=== PATIENT | male | born 1970 | race Caucasian/White ===

== ENCOUNTER 2018-01-04 09:49 | Emergency (ER) | payer BC, SELFPAY ==
[2018-01-04 09:50] VITALS: BP 141/94; PULSE 88; RESP 16; TEMP 36.6; O2SAT 97; BMI 29.0
--- NOTE | 2018-01-04 10:01 | EKG12_ITS ---
Test Reason : CP Blood Pressure : / mmHG Vent. Rate : 086 BPM Atrial Rate : 086 BPM P-R Int : 154 ms QRS Dur : 098 ms QT Int : 366 ms P-R-T Axes : 020 029 022 degrees QTc Int : 437 ms Normal sinus rhythm Normal ECG Confirmed by CASTILLO HAIDER, YECENIA ([id number]), online content editor JULIET GUPTA ([id number]) on 01/06/2018 2:07:49 PM Referred By: RONIT/JAMAL Confirmed By:YECENIA CHONG MD
--- NOTE | 2018-01-04 10:04 | ED.VISSUMM ---
- ER Visit Summary Date of Service: 01/04/18 Chief Complaint: Chest pain History of Present Illness: The patient is a 47 M who presents with chest pain. Started 3 hours ago. He was walking into work and had stabbing pain in the left side of the chest. It made his left arm go numb. Nothing made this pain better or worse. He states he did feel short of breath during this episode. He also felt nauseous. 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 He denies ever having a stress test. He has a personal history of cholesterolemia but no other cardiac risk factors. He is a non-smoker. Physical Examination: Vital signs reviewed. HEENT exam unremarkable. Heart is regular rate and rhythm without murmurs. Lungs are clear to auscultation. Abdomen is soft and nontender. Extremities reveal no edema. Peripheral pulses are equal. Skin exam normal. Neurologic exam normal. Test Results: EKG is normal sinus rhythm with rate of 86. No ST changes. Chest x-ray unremarkable. Labs are all normal Emergency Department Course and Treatment: Patient is low risk on his LISA and heart score. He would rather do a 3 hour troponin rule out and get admitted to the hospital. I think this is appropriate. His 3 hour troponin is negative. Repeat EGD is also unchanged. Patient will be discharged to follow-up with his PCP as an outpatient Treatment Plan: [] Disposition: Discharge Impression: Chest pain This note was generated with [employer] dictation software. It may contain incorrect words, spelling, and punctuation that were not noted in review of the chart prior to signing ED Disposition - Plan for ED Patient: Chief Complaint: Chest Pain Referrals: Asael Pinedo MD [Primary Care Provider] -
[2018-01-04] MEDS: Aspirin 81 MG TAB.CHEW 324 MG PO (10:05)
--- NOTE | 2018-01-04 10:05 | RAD_ITS ---
STUDY: X-RAY CHEST REASON FOR EXAM: Male, 47 years old. Shortness of breath and cough. Left chest pain. TECHNIQUE: Single AP portable upright view of the chest. COMPARISON: None. FINDINGS: The lungs are clear and expanded. There is no demonstrated pleural abnormality. Normal size heart. Normal mediastinum and angelica. Normal visualized pulmonary arteries. Normal visualized aortic arch and descending thoracic aorta. Normal visualized thoracic spine. Normal visualized ribs, clavicles, and shoulders. There is no demonstrated abnormality of the visualized soft tissue structures of the upper abdomen. RAD/Chest 1 View (Portable) IMPRESSION: Normal x-ray examination of the chest. Electronically Signed: Michael Bernard MD at 10:24 EDT , Service support ,
[2018-01-04 10:11] LABS: Absolute Lymphocyte Count 1.72 X10^3/ul (0.83-4.51); Absolute Neutrophil Count 4.7 X10^3/uL (2.0-7.7); Basophil# 0.03 X10^3/uL; Basophil% 0.4 % (0-1); Eosinophil# 0.03 X10^3/uL; Eosinophils% 0.4 % (0-5); Hematocrit 42.6 % (40-54); Hemoglobin 14.5 g/dl (13.0-16.5); Lymphocyte # 1.72 X10^3/ul (4.0); Lymphocyte % 24.8 % (19-41); Mean Corpuscular Volume 88.2 fL (80-94); Mean Platelet Vol. 8.5 fl (6.2-12.0); Monocyte# 0.44 X10^3/uL; Monocyte% 6.3 % (0-10); Neutrophil # 4.71 X10^3/uL (2.7-7.7); Platelet Count 267 K/mm3 (150-450); RBC Distribution Width CV 12.6 % (11.6-14.6); RBC Distribution Width SD 40.4 fl (35.1-43.9); Red Blood Count 4.83 M/mm3 (4.6-6.2); White Blood Count 6.9 K/mm3 (4.4-11.0)
[2018-01-04 10:16] LABS: POSITIVE COUNT NO; POSITIVE DIFFERENTIAL NO; POSITIVE MORPHOLOGY NO
[2018-01-04 10:26] LABS: Anion Gap 8 (5-15); BUN 18 mg/dL (7-18); BUN/Creat Ratio 14.6 RATIO (10-20); Calcium,Total 8.7 mg/dL (8.5-10.1); Chloride 109 mmol/L (98-107); Creatinine, Serum 1.23 mg/dL (0.70-1.30); EST Glomerular Filtration Rate 67 mL/min (>60); Est Glom Filt Rate - Afr Amer 81 mL/min (>60); Estimated Creatinine Clearance 71.83 ml/min; Glucose 95 mg/dL (74-106); Potassium 4.1 mmol/L (3.5-5.1); Sodium Level 142 mmol/L (136-145)
[2018-01-04 11:45] VITALS: BP 132/81; PULSE 64; RESP 16; O2SAT 96
--- NOTE | 2018-01-04 13:00 | EKG12_ITS ---
Test Reason : REPEAT Blood Pressure : / mmHG Vent. Rate : 064 BPM Atrial Rate : 064 BPM P-R Int : 186 ms QRS Dur : 106 ms QT Int : 394 ms P-R-T Axes : 028 013 007 degrees QTc Int : 406 ms Normal sinus rhythm Normal ECG Confirmed by CASTILLO HAIDER, YECENIA ([id number]), newspaper copy editor JULIET GUPTA ([id number]) on 01/06/2018 2:09:58 PM Referred By: JAMAL Confirmed By:YECENIA CHONG MD
--- NOTE | 2018-01-04 13:39 | ED.DEP ---
ED Disposition - Plan for ED Patient: Disposition: Home or Assisted Living Chief Complaint: Chest Pain Instructions: ED Chest Pain NonCardiac Prescriptions: RX: Naproxen [Naprosyn] 500 mg PO BID PRN #20 tab Referrals: Asael Pinedo MD [Primary Care Provider] -
[2018-01-04 13:53] VITALS: BP 141/97; PULSE 67; RESP 12; O2SAT 97
== END 2018-01-04 13:54 | disposition home or self-care (01) ==
PROVIDERS: Emergency Provider Emergency Medicine; Family Provider Family Medicine; PCP Family Medicine
DX: R07.9 Chest pain, unspecified (principal); R11.0 Nausea; E78.00 Pure hypercholesterolemia, unspecified
CPT/HCPCS: 71045; 80048; 84484; 85025; 93005; 99285; A4216

== ENCOUNTER → 2018-02-18 15:28 | Outpatient (CLI) | payer BC, SELFPAY ==
[2018-02-18 17:46] LABS: Absolute Lymphocyte Count 2.14 X10^3/ul (0.83-4.51); Absolute Neutrophil Count 5.8 X10^3/uL (2.0-7.7); Basophil# 0.02 X10^3/uL; Basophil% 0.2 % (0-1); Eosinophil# 0.05 X10^3/uL; Eosinophils% 0.6 % (0-5); Hematocrit 48.8 % (40-54); Hemoglobin 17.3 g/dl (13.0-16.5); Lymphocyte # 2.14 X10^3/ul (4.0); Lymphocyte % 24.9 % (19-41); Mean Corp Hgb Conc 35.5 g/gl (32-36); Mean Corpuscular Hgb 30.9 pg (27.0-32.0); Mean Corpuscular Volume 87.1 fL (80-94); Mean Platelet Vol. 9.4 fl (6.2-12.0); Monocyte% 5.8 % (0-10); Neutrophil # 5.84 X10^3/uL (2.7-7.7); Neutrophil % 68.2 % (47-70); Platelet Count 358 K/mm3 (150-450); RBC Distribution Width CV 12.3 % (11.6-14.6); RBC Distribution Width SD 39.2 fl (35.1-43.9); White Blood Count 8.6 K/mm3 (4.4-11.0)
[2018-02-18 17:49] LABS: POSITIVE COUNT NO; POSITIVE DIFFERENTIAL NO; POSITIVE MORPHOLOGY NO
[2018-02-18 17:56] LABS: Anion Gap 8 (5-15); BUN 19 mg/dL (7-18); Calcium,Total 9.3 mg/dL (8.5-10.1); Chloride 103 mmol/L (98-107); Creatinine, Serum 1.27 mg/dL (0.70-1.30); EST Glomerular Filtration Rate 64 mL/min (>60); Est Glom Filt Rate - Afr Amer 78 mL/min (>60); Glucose 84 mg/dL (74-106); Potassium 4.4 mmol/L (3.5-5.1); Sodium Level 141 mmol/L (136-145); Thyroid Stim Hormone (TSH) 2.33 uIU/mL (0.358-3.74)
== END ==
PROVIDERS: Family Provider Family Medicine; PCP Family Medicine; Visit Provider Family Medicine
DX: R53.83 Other fatigue (principal)
CPT/HCPCS: 36415; 80048; 84403; 84443; 85025

== ENCOUNTER → 2018-02-25 12:06 | Outpatient (CLI) | payer BC, SELFPAY ==
[2018-02-25 14:36] LABS: Absolute Lymphocyte Count 2.09 X10^3/ul (0.83-4.51); Absolute Neutrophil Count 5.3 X10^3/uL (2.0-7.7); Basophil# 0.03 X10^3/uL; Basophil% 0.4 % (0-1); Eosinophil# 0.05 X10^3/uL; Eosinophils% 0.6 % (0-5); Hematocrit 46.8 % (40-54); Hemoglobin 16.2 g/dl (13.0-16.5); Lymphocyte # 2.09 X10^3/ul (4.0); Lymphocyte % 26.4 % (19-41); Mean Corp Hgb Conc 34.6 g/gl (32-36); Mean Corpuscular Hgb 30.4 pg (27.0-32.0); Mean Corpuscular Volume 87.8 fL (80-94); Mean Platelet Vol. 9.5 fl (6.2-12.0); Monocyte# 0.41 X10^3/uL; Monocyte% 5.2 % (0-10); Neutrophil # 5.32 X10^3/uL (2.7-7.7); Neutrophil % 67.3 % (47-70); Platelet Count 293 K/mm3 (150-450); RBC Distribution Width SD 38.4 fl (35.1-43.9); Red Blood Count 5.33 M/mm3 (4.6-6.2); White Blood Count 7.9 K/mm3 (4.4-11.0)
[2018-02-25 14:38] LABS: POSITIVE COUNT NO; POSITIVE DIFFERENTIAL NO; POSITIVE MORPHOLOGY NO
== END ==
PROVIDERS: Family Provider Family Medicine; PCP Family Medicine; Visit Provider Family Medicine
DX: R53.83 Other fatigue (principal)
CPT/HCPCS: 36415; 85025

== ENCOUNTER → 2018-10-13 16:07 | Outpatient (CLI) | payer BC, SELFPAY ==
--- NOTE | 2018-10-13 16:14 | US_ITS ---
STUDY: RENAL ULTRASOUND - COMPLETE REASON FOR EXAM: Male, 48 years old. History of kidney stones. Bilateral back pain. TECHNIQUE: Ultrasound evaluation of the kidneys was performed with real-time and static jiang-scale imaging. COMPARISON: July 06, 2015. FINDINGS: RIGHT KIDNEY: Normal location of the right kidney, which is normal in size. The right kidney measures 11.5 cm. There is a normal cortex of the right kidney. The renal cortex measures 1.5 cm. There is no right renal mass or cyst. 4 mm echogenic focus in the mid kidney thought to represent a kidney stone. This appears stable. There is no right hydronephrosis. DISTAL RIGHT URETER: There is non-visualization of the distal right ureter. There is no demonstrated right ureterovesical junction calculus. There is a visualized right ureteral jet. LEFT KIDNEY: Normal location of the left kidney, which is normal in size. The left kidney measures 11.4 cm. There is a normal cortex of the left kidney. The renal cortex measures 1.7 cm. There is a 1.6 x 1.4 x 1.7 cm cyst in the upper pole this appears to have a thin internal septation. This appears stable. There is also a 9 mm calcification in the lower pole thought to represent a kidney stone. This is a new finding. There are no left renal calculi. There is no left hydronephrosis. DISTAL LEFT URETER: There is non-visualization of the distal left ureter. There is no demonstrated left ureterovesical junction calculus. There is a visualized left ureteral jet. BLADDER: The distended urinary bladder has a volume of 234 ml. The empty urinary bladder has a volume of 0 ml. There is a normal wall thickness of the distended urinary bladder. There is no demonstrated mass within the urinary bladder. There are no demonstrated bladder calculi. US/Kidney and Bladder IMPRESSION: 1. Stable septated left renal cyst. 2. New calcification lower pole left kidney. Other calcifications noted on the earlier study are no longer visualized. 3. Stable calcification in the right mid kidney. Other small calcifications noted in the prior study are now absent. 4. Normal urinary bladder. Electronically Signed: Ramy Leiva DO at 20:58 EST Tel [phone], Service support ,
== END ==
PROVIDERS: Family Provider Family Medicine; PCP Family Medicine; Referring Provider Nurse Practitioner Adult Health; Visit Provider Nurse Practitioner Adult Health
DX: M54.9 Dorsalgia, unspecified (principal)
CPT/HCPCS: 76770

== ENCOUNTER → 2018-10-19 11:48 | Outpatient (CLI) | payer BC, SELFPAY ==
--- NOTE | 2018-10-19 11:53 | CT_ITS ---
STUDY: CT ABDOMEN AND PELVIS WITHOUT CONTRAST REASON FOR EXAM: Male, 48 years old. Left flank pain. Left renal calculus. RADIATION DOSAGE (If Supplied By Facility): CTDIvol = ( 11.55 ) mGy, DLP = ( 635.38 ) mGycm TECHNIQUE: Transaxial images were obtained from the dome of the diaphragm to the symphysis pubis without oral contrast, and without intravenous contrast. Sagittal and coronal images were reconstructed. Individualized dose optimization techniques were used for this CT. COMPARISON: None. FINDINGS: Minimally increased linear markings in the anterior medial aspect of the right middle lobe suggestive of scarring and/or atelectasis. The visualized portions of the heart are within normal limits. Normal liver. Normal gallbladder and extrahepatic biliary system. Normal spleen. Normal pancreas. Normal bilateral adrenal glands. Normal right kidney. 1.6 cm cyst in the mid lateral aspect of the left kidney. There is a small hiatal hernia. Normal small intestine. There are scattered colonic diverticula consistent with diverticulosis. The appendix is visualized and appears normal. There is scattered atherosclerotic calcification of the abdominal aorta, without a demonstrated aneurysm. Normal inferior vena cava. There is borderline retroperitoneal lymphadenopathy with enlarged nodes no greater than 10mm in the short axis diameter. Normal urinary bladder. There are prostatic calcifications. Normal abdominal wall. Normal osseous structures. CT/Abdomen/Pelvis without Cont IMPRESSION: Left renal cyst. No obstructive uropathy is seen. No renal calcification is present. Electronically Signed: Can Sandra MD at 13:03 EST , Service support ,
== END ==
PROVIDERS: Family Provider Family Medicine; PCP Family Medicine; Referring Provider Nurse Practitioner Adult Health; Visit Provider Nurse Practitioner Adult Health
DX: R31.0 Gross hematuria (principal); N20.0 Calculus of kidney; R10.9 Unspecified abdominal pain
CPT/HCPCS: 74176

== ENCOUNTER 2019-05-25 10:53 | Emergency (ER) | payer BC, SELFPAY ==
[2019-05-25 10:54] VITALS: BP 146/94; PULSE 65; RESP 18; TEMP 36.6; O2SAT 98; BMI 26.1
--- NOTE | 2019-05-25 11:10 | EKG12_ITS ---
Test Reason : CP Blood Pressure : / mmHG Vent. Rate : 069 BPM Atrial Rate : 069 BPM P-R Int : 176 ms QRS Dur : 104 ms QT Int : 388 ms P-R-T Axes : 039 018 034 degrees QTc Int : 415 ms Normal sinus rhythm Normal ECG Confirmed by MIRIAM HAIDER, MERLENE ([id number]), editorial assistant PRINCESS WILLETT ([id number]) on 05/27/2019 10:22:51 A M Referred By: ELIZABETH/JESSICA Confirmed By:MARQUEZ PINEDA MD
--- NOTE | 2019-05-25 11:10 | RAD_ITS ---
STUDY: X-RAY CHEST REASON FOR EXAM: Male, 49 years old. Chest pain. TECHNIQUE: Single AP portable view of the chest. COMPARISON: Comparison is made with prior examination dated January 04, 2018. FINDINGS: EKG electrodes are seen. The lungs are clear and expanded. There is no demonstrated pleural abnormality. Normal size heart. Normal mediastinum and angelica. Normal visualized pulmonary arteries. Normal visualized aortic arch and descending thoracic aorta. Normal visualized thoracic spine. Normal visualized ribs, clavicles, and shoulders. There is no demonstrated abnormality of the visualized soft tissue structures of the upper abdomen. RAD/Chest 1 View (Portable) IMPRESSION: Normal x-ray examination of the chest. Electronically Signed: Can Sandra, at 11:34 EDT , Service support ,
--- NOTE | 2019-05-25 11:11 | ED.DCSUM_ITS ---
History of Present Illness Chief Complaint: Chest Pain Informant: Patient Onset: Today Context: Gradual Onset Current Severity: Mild Maximum Severity: Moderate Narrative: Patient states he was standing at work this morning when he got left sided chest pain. It radiated down his left arm to his elbow and up his left neck to his face. He states he has had similar episodes before, but never really had it radiate up into his neck before. Pain is improving at this time, but not completely resolved. He does have a history of high cholesterol and is a smoker. He denies ever having a prior stress test. He does have family history of cardiac disease in both of his grandfathers dying of heart attacks in their 60s. - Past Medical History (1) High cholesterol Status: Chronic Past Medical History - Allergies and Home Meds Allergies/Adverse Reactions: Allergies Penicillins Allergy (Verified 01/04/18 09:54) Anaphylaxis Primary Care Physician: Asael Pinedo MD [Primary Care Provider] - Prior records reviewed: Yes Past Medical History: - - Reviewed Smoking Status: Current every day smoker Review of Systems General: Denies: Chills, Fever Eyes: Denies: Visual changes - bilaterally ENT: Denies: Bilateral ear pain Cardiovascular: Reports: Chest pain. Denies: Palpitations, Heart racing Respiratory: Reports: Dyspnea. Denies: Cough Gastrointestinal: Denies: Abdominal pain, Nausea, Vomiting, Diarrhea Musculoskeletal: Reports: Neck pain Skin: Denies: Rash Neurological: Denies: Headache Hematologic: Denies: Easy bruising Allergy: Denies: Uticaria Physical Exam Vital Signs/Narrative: Vital Signs Temp Pulse Resp BP Pulse Ox 05/25/19 10:54 97.9 F 65 18 146/94 H 98 Inital Vital Signs reviewed: Yes General: Well nourished, Well developed Head: Normocephalic ENT: Moist mucous membranes Neck: Supple Cardiovascular: Regular rate, Regular rhythm Respiratory: No distress, CTA bilaterally Abdomen: Soft, Nontender Extremities: Nontender, No edema Skin: Normal color, No rash Neurological: Alert, Oriented x3 Psychological: Normal affect Diagnostic/Tx/Re-eval Impressions Chest X-Ray 05/25/19 11:10 IMPRESSION: Normal x-ray examination of the chest. Electronically Signed: Can Sandra, at 11:34 EDT , Service support , 05/25/19 11:10 Chest 1 View (Portable) [RAD] Stat Laboratory Results 05/25/19 05/25/19 05/25/19 10:56 10:56 10:56 WBC 5.8 RBC 4.97 Hgb 14.6 Hct 43.2 MCV 86.9 MCH 29.4 MCHC 33.8 RDW Std Deviation 37.9 RDW Coeff of Cristina 11.9 Plt Count 312 MPV 8.9 Immature Gran % (Auto) 0.200 Neut % (Auto) 62.6 Lymph % (Auto) 27.1 Ector % (Auto) 8.0 Eos % (Auto) 1.4 Baso % (Auto) 0.7 Absolute Neuts (auto) 3.6 Absolute Lymphs (auto) 1.56 Nucleated RBC % 0 D-Dimer Quant (PE/DVT) < 0.27 L Sodium 139 Potassium 3.9 Chloride 109 H Carbon Dioxide 28.0 Anion Gap 2 L BUN 14 Creatinine 1.10 Estim Creat Clear Calc 83.88 Est GFR (MDRD) Af Amer 91 Est GFR (MDRD) Non-Af 76 BUN/Creatinine Ratio 12.7 Glucose 109 H Calcium 8.6 Troponin I < 0.015 - EKG Initial EKG Interpretation: Sinus Rhythm - Sinus at 69 with no acute ischemia. - Medical Decision Making Patient was given aspirin. Morphine and Zofran were ordered but he declined. On repeat evaluation he states the pain is pretty much unchanged. Test results are discussed with him. I recommended hospitalization overnight for cycling of enzymes and stress test, but he declines at this time. We discussed possibility of 3-hour repeat labs and he declines this as well. He voices understanding that I cannot rule out that this is from his heart. He will return if symptoms worsen. Up with his primary care physician as soon as possible. ED Disposition - Plan for ED Patient: Disposition: Home or Assisted Living Diagnosis: Chest pain Instructions: CHEST PAIN, Uncertain Cause Referrals: Asael Pinedo MD [Primary Care Provider] - As soon as possible
[2019-05-25 11:18] LABS: Absolute Lymphocyte Count 1.56 X10^3/uL (0.83-4.51); Absolute Neutrophil Count 3.6 X10^3/uL (2.0-7.7); Basophil# 0.04 X10^3/uL; Basophil% 0.7 % (0-1); Eosinophil# 0.08 X10^3/uL; Eosinophils% 1.4 % (0-5); Hematocrit 43.2 % (40-54); Hemoglobin 14.6 g/dL (13.0-16.5); Lymphocyte # 1.56 X10^3/ul (4.0); Lymphocyte % 27.1 % (19-41); Mean Corp Hgb Conc 33.8 g/dL (32-36); Mean Corpuscular Hgb 29.4 pg (27.0-32.0); Mean Corpuscular Volume 86.9 fL (80-94); Mean Platelet Vol. 8.9 fl (6.2-12.0); Monocyte# 0.46 X10^3/uL; NRBC Flagged by Analyzer 0 % (0-5); Neutrophil # 3.61 X10^3/uL (2.7-7.7); Neutrophil % 62.6 % (47-70); Platelet Count 312 K/mm3 (150-450); RBC Distribution Width CV 11.9 % (11.6-14.6); RBC Distribution Width SD 37.9 fl (35.1-43.9); Red Blood Count 4.97 M/mm3 (4.6-6.2); White Blood Count 5.8 K/mm3 (4.4-11.0)
[2019-05-25 11:33] LABS: Anion Gap 2 (5-15); BUN 14 mg/dL (7-18); BUN/Creat Ratio 12.7 RATIO (10-20); Calcium,Total 8.6 mg/dL (8.5-10.1); Chloride 109 mmol/L (98-107); EST Glomerular Filtration Rate 76 mL/min (>60); Est Glom Filt Rate - Afr Amer 91 mL/min (>60); Estimated Creatinine Clearance 83.88 ml/min; Glucose 109 mg/dL (74-106); Potassium 3.9 mmol/L (3.5-5.1); Sodium Level 139 mmol/L (136-145)
[2019-05-25 11:34] LABS: D-Dimer Quantitative (DVT/PE) < 0.27 FEU/ug/m (0.27-0.49)
[2019-05-25 11:35] VITALS: O2SAT 94
[2019-05-25] MEDS: 0.9% Normal Saline 1,000 ML 150 ML IV (11:42)
[2019-05-25] MEDS: Ondansetron 4 MG/2 ML Vial IV (11:42)
[2019-05-25] MEDS: Aspirin 81 MG TAB.CHEW 324 MG PO (11:43)
[2019-05-25 12:14] VITALS: BP 156/100; PULSE 69; RESP 14; O2SAT 98
[2019-05-25 12:38] VITALS: BP 135/92; PULSE 66; RESP 17; O2SAT 98
== END 2019-05-25 12:41 | disposition home or self-care (01) ==
PROVIDERS: Emergency Provider Emergency Medicine; Family Provider Family Medicine; PCP Family Medicine
DX: R07.9 Chest pain, unspecified (principal); E78.00 Pure hypercholesterolemia, unspecified; F17.200 Nicotine dependence, unspecified, uncomplicated; Z82.49 Family history of ischemic heart disease and other diseases of the circulatory system; Z88.0 Allergy status to penicillin
CPT/HCPCS: 71045; 80048; 84484; 85025; 85379; 93005; 96361; 96374; 96375; 99285; J7030; A4216; J2405

== ENCOUNTER → 2020-06-28 17:27 | Outpatient (CLI) | payer BC, SELFPAY | PROVIDERS: PCP Family Medicine; Referring Provider Family Medicine; Visit Provider Family Medicine | DX: Z20.828 Contact with and (suspected) exposure to other viral communicable diseases (principal) | CPT/HCPCS: 87635; U0003 ==

== ENCOUNTER → 2020-07-05 15:34 | Outpatient (CLI) | payer BC, SELFPAY | PROVIDERS: PCP Family Medicine; Visit Provider Family Medicine | DX: Z20.828 Contact with and (suspected) exposure to other viral communicable diseases (principal) | CPT/HCPCS: 87635; U0003 ==

== ENCOUNTER → 2020-09-06 14:49 | Outpatient (CLI) | payer BC, SELFPAY | PROVIDERS: PCP Family Medicine; Referring Provider Family Medicine; Visit Provider Family Medicine | DX: Z20.822 Contact with and (suspected) exposure to COVID-19 (principal) | CPT/HCPCS: 87635; U0005; U0003 ==

== ENCOUNTER → 2020-10-18 16:14 | Outpatient (CLI) | payer BC, SELFPAY ==
--- NOTE | 2020-10-18 16:17 | RAD_ITS ---
STUDY: X-RAY - CERVICAL SPINE REASON FOR EXAM: Male, 50 years old. cervical radiculopathy TECHNIQUE: 5 view(s) of the cervical spine were obtained. COMPARISON: None FINDINGS: Normal anterior atlantoaxial articulation. Normal odontoid process. Normal cervical lordosis. Normal vertebral bodies and endplates. Mild disc narrowing and spondylitic endplate changes at C6-7. Minimal disc narrowing at other cervical levels. Posterior elements are normally located. The oblique view for visualization of the right foramina is an adequate view and demonstrates no foraminal narrowing. The oblique view for visualization of the left foramina is not adequate and the foramina are not accurately visualized. The soft tissue structures are unremarkable. RAD/Cerv Spine 4 or 5 Views IMPRESSION: Normal alignment of the cervical spine without fracture, osteolytic or blastic bone lesion. Degenerative disc and joint changes are primarily present at C6-7. No foraminal narrowing on the right. Inadequate visualization of the foramina on the left. Electronically Signed: Kenia Warner MD at 16:51 EST , Service support ,
== END ==
PROVIDERS: PCP Family Medicine; Referring Provider Family Medicine; Visit Provider Family Medicine
DX: M54.12 Radiculopathy, cervical region (principal)
CPT/HCPCS: 72050

== ENCOUNTER → 2020-10-29 14:52 | Outpatient (CLI) | payer BC, SELFPAY ==
--- NOTE | 2020-10-29 15:00 | RAD_ITS ---
STUDY: X-RAY - ABDOMEN/PELVIS REASON FOR EXAM: Male, 50 years old. Flank pain TECHNIQUE: Two AP supine views of the abdomen and pelvis. COMPARISON: None. FINDINGS: Normal visualized lung bases. There is an unremarkable bowel gas pattern. There is no demonstrated free abdominal air. The visualized liver, spleen and kidneys are grossly normal in size and morphology. There is a calcified phlebolith in the pelvis. Normal visualized osseous structures. RAD/Abdomen Single View IMPRESSION: No acute findings Electronically Signed: Michael Shore MD at 17:12 EST , Service support ,
== END ==
PROVIDERS: PCP Family Medicine; Referring Provider Nurse Practitioner Adult Health; Visit Provider Nurse Practitioner Adult Health
DX: R10.9 Unspecified abdominal pain (principal); M54.89 Other dorsalgia; Z87.442 Personal history of urinary calculi
CPT/HCPCS: 74018

== ENCOUNTER 2021-11-04 11:03 | Observation (INO) | payer BC, SELFPAY ==
[2021-11-04] VITALS (10 sets, daily range): BP systolic 149–173; BP diastolic 98–110; PULSE 60–98; RESP 11–20; TEMP 36.4–36.7; O2SAT 94–100; BMI 25.6; BMI 26.2
--- NOTE | 2021-11-04 11:34 | EKG12_ITS ---
Test Reason : STROKE Blood Pressure : / mmHG Vent. Rate : 076 BPM Atrial Rate : 076 BPM P-R Int : 182 ms QRS Dur : 108 ms QT Int : 382 ms P-R-T Axes : 026 007 031 degrees QTc Int : 429 ms Normal sinus rhythm Normal ECG Confirmed by BAILEE HAIDER, JOSE ([id number]), art editor PRINCESS WILLETT ([id number]) on 11/05/2021 9:55:15 AM Referred By: PC Confirmed By:JOSE MOROCHO MD
--- NOTE | 2021-11-04 11:35 | CT_ITS ---
STUDY: CTA HEAD AND NECK WITH CONTRAST REASON FOR EXAM: Male, 51 years old. Neuro deficit, acute, stroke suspected RADIATION DOSAGE (If Supplied By Facility): CTDIvol = ( 19.05 ) mGy, DLP = ( 622.73 ) mGycm TECHNIQUE: CT angiography was performed with a multi-detector CT scanner. Data acquisition was obtained from the skull base through the vertex following intravenous administration of IV 100mL Isovue-370. MIP images were reconstructed from the axial data set. Post-processing of the angiographic images was performed, with multiplanar reformation and 3D reconstruction. Individualized dose optimization techniques were used for this CT. COMPARISON: No relevant priors. FINDINGS: Normal bilateral petrous carotid arteries. Normal right cavernous carotid artery with a normal supraclinoid bifurcation. Normal left cavernous carotid artery with a normal supraclinoid bifurcation. Normal right A1 segments of the anterior cerebral artery. Normal left A1 segments of the anterior cerebral artery. Normal intact anterior communicating artery (ACOM). Normal bilateral A2 segments of the anterior cerebral arteries. Normal right M1 and M2 segments of the middle cerebral arteries, with a normal M1 bifurcation. Normal left M1 and M2 segments of the middle cerebral arteries, with a normal M1 bifurcation. Normal right posterior communicating artery (PCOM). Normal left posterior communicating artery (PCOM). Normal bilateral vertebral arteries. Normal basilar artery with a normal basilar bifurcation. The visualized bilateral superior cerebellar (SCA) arteries are normal. Normal bilateral P1, P2 and visualized P3 segments of the posterior cerebral arteries. There is no demonstrated aneurysm of the [place]. There is no demonstrated abnormality of the visualized brain. AORTIC ARCH: Minimal calcific atherosclerotic plaques at the level of the aortic arch. Normal origins of the brachiocephalic, left common carotid, and left subclavian arteries. RIGHT CAROTID ARTERIES: Normal right common carotid artery (CCA). Normal right common carotid bulb. Normal origin of the right internal carotid (ICA) artery without a hemodynamically significant stenosis. Normal visualized cervical portion of the right internal carotid artery. Normal origin of the right external carotid artery (ECA). LEFT CAROTID ARTERIES: Normal left common carotid artery (CCA). Normal left common carotid bulb. Normal origin of the left internal carotid (ICA) artery without a hemodynamically significant stenosis. Normal visualized cervical portion of the left internal carotid artery. Normal origin of the left external carotid artery (ECA). VERTEBRAL ARTERIES: Normal bilateral vertebral arteries. CT/STROKE CTA Head AND Neck W/Con IMPRESSION: Normal CTA Head and neck with contrast. N.B. : The above Results were Read Back by Can Sandra MD to keerthi coorna and understanding confirmed on 11/04/2021 12:10:27 (ET). Electronically Signed: Can Sandra MD at 12:11 EST ,
--- NOTE | 2021-11-04 11:35 | ED.VIS.STROK ---
HPI History of Present Illness Chief Complaint: Numb/Ting Narrative Narrative: Patient presents with about 2-1/2 hours after left-sided numbness. He felt his face to be numb or may be even weak in his left arm also he took his blood pressure and it was elevated. He normally does not take blood pressure or cholesterol medications. He has no vision changes, he has no leg involvement, no recent trauma. PFSH PFS Home Medications NK 11/04/21 [History Last Taken Unknown] Allergy/AdvReac Type Severity Reaction Status Date / Time Penicillins Allergy Anaphylaxis Verified 11/04/21 11:05 Surgical History Hx of neck surgery Social History Smoking Status: Current every day smoker tobacco type: cigarettes ROS ROS ED ROS Narrative Past medical history: Reviewed Medications: Reviewed Social history: Noncontributory Review of systems: All systems negative except as indicated General: No fever Eyes: No visual changes ENT: No upper airway congestion, normal voice Neck: No neck pain Cardiovascular: No chest pain Respiratory: No shortness of breath or cough Gastrointestinal: No abdominal pain, nausea vomiting or diarrhea Genitourinary: No dysuria Musculoskeletal: Denies myalgias no difficulty with ambulation Skin: No rash Neurological: As in HPI Psych: No recent behavioral changes Hematologic: No easy bleeding or easy bruising EXAM Physical Exam Narrative Exam Narrative: Physical exam General: Well nourished, Well developed, No Acute Distress Head: Normocephalic, Atraumatic Eyes: Conjunctiva not pale ENT: Moist mucous membranes Neck: Supple, Nontender, No lymphadenopathy Cardiovascular: Regular rate, Regular rhythm Respiratory: No distress, CTA bilaterally Abdomen: Soft, Nontender, Nondistended Back: Nontender, Normal Inspection. Negative for: CVA tenderness Extremities: Nontender, No edema Skin: Normal color, No rash Neurological: Alert, Normal Strength, decreased left-sided sensation mostly face and arm. See NIH stroke scale Psychological: Normal affect Const Vital Signs: 11/04/21 11:03 11/04/21 11:17 11/04/21 11:30 Temperature 97.8 F Temperature Source Temporal Pulse Rate 78 98 Respiratory Rate 14 16 Blood Pressure 171/110 H 156/98 H 162/110 H Blood Pressure Mean 130 117 127 Pulse Ox 100 99 Oxygen Delivery Method Room Air Room Air 11/04/21 11:45 11/04/21 12:04 Temperature Temperature Source Pulse Rate 78 Respiratory Rate 20 H Blood Pressure 173/103 H Blood Pressure Mean 126 Pulse Ox 95 Oxygen Delivery Method Room Air Room Air STROKE Vital Signs/Narrative: Vital Signs Temp Pulse Resp BP Pulse Ox 11/04/21 12:04 78 20 H 173/103 H 95 11/04/21 11:30 98 16 162/110 H 99 11/04/21 11:17 156/98 H 11/04/21 11:03 97.8 F 78 14 171/110 H 100 NIHSS Initial: 1a Level of Consciousness: 0 1b LOC Questions (Score 2 if aphasic/stupor): 0 1c LOC Commands (Only score 1st attempt): 0 2 Best Gaze (If aphasic, use reflexive mvmts.): 0 3 Visual: 0 4 Facial Palsy: 0 5 Motor Arm Right (UN = amputation/fusion): 0 5 Motor Arm Left: 0 6 Motor Leg Right: 0 6 Motor Leg Left: 0 7 Limb ataxia (Only + if out of proportion): 0 8 Sensory (Aphasia/stupor=0 or 1, coma=2): 1 9 Best Language: 0 10 Dysarthria (mute, coma=2, intubated=UN): 0 11 Extinction and Inattention (only scored if +): 0 Total Score: 1 MDM MDM MDM Narrative Medical decision making narrative: Patient has an NIH stroke scale of 1. He does not meet criteria for TPA due to the symptoms being quite minor. His CT and CTA are unremarkable I will admit for MRI. Lab Data Labs: Laboratory Results - last 24 hr 11/04/21 11/04/21 11/04/21 11:40 11:40 11:40 WBC 6.7 RBC 5.08 Hgb 15.2 Hct 42.2 MCV 83.1 MCH 29.9 MCHC 36.0 RDW Std Deviation 35.8 RDW Coeff of Cristina 11.9 Plt Count 282 MPV 8.7 Immature Gran % (Auto) 0.500 Neut % (Auto) 62.0 Lymph % (Auto) 28.3 [place] % (Auto) 7.4 Eos % (Auto) 1.2 Baso % (Auto) 0.6 Absolute Neuts (auto) 4.1 Absolute Lymphs (auto) 1.88 Nucleated RBC % 0 PT 13.6 INR 1.1 APTT 28.8 Sodium 139 Potassium 4.0 Chloride 109 H Carbon Dioxide 27.0 Anion Gap 3 L BUN 15 Creatinine 1.17 Estim Creat Clear Calc 77.12 Est GFR (MDRD) Af Amer 84 Est GFR (MDRD) Non-Af 70 BUN/Creatinine Ratio 12.8 Glucose 100 Calcium 9.0 Troponin I High Sens 5 POC Glucose 11/04/21 11:50 WBC RBC Hgb Hct MCV MCH MCHC RDW Std Deviation RDW Coeff of Cristina Plt Count MPV Immature Gran % (Auto) Neut % (Auto) Lymph % (Auto) [place] % (Auto) Eos % (Auto) Baso % (Auto) Absolute Neuts (auto) Absolute Lymphs (auto) Nucleated RBC % PT INR APTT Sodium Potassium Chloride Carbon Dioxide Anion Gap BUN Creatinine Estim Creat Clear Calc Est GFR (MDRD) Af Amer Est GFR (MDRD) Non-Af BUN/Creatinine Ratio Glucose Calcium Troponin I High Sens POC Glucose 102 Radiography Diagnostic Testing: Clinical Impression(s) from Imaging Studies Head/Neck CTA 11/04/21 11:35 IMPRESSION: Normal CTA Head and neck with contrast. N.B. : The above Results were Read Back by Can Sandra MD to asael corona and understanding confirmed on 11/04/2021 12:10:27 (ET). Electronically Signed: Can Sandra MD at 12:11 EST , ADDENDUM: 11/04/21 1218 IMPRESSION: Normal CTA Head and neck with contrast. N.B. : The above Results were Read Back by Can Sandra MD to asael corona and understanding confirmed on 11/04/2021 12:10:27 (ET). Electronically Signed: Can Sandra MD at 12:11 EST , Brain CT 11/04/21 11:40 IMPRESSION: Normal unenhanced CT scan of the brain. N.B. : The above Results were Read Back by Can Sandra MD to asael corona and understanding confirmed on 11/04/2021 11:52:27 (ET). Electronically Signed: Can Sandra MD at 11:53 EST , ADDENDUM: 11/04/21 1201 IMPRESSION: Normal unenhanced CT scan of the brain. N.B. : The above Results were Read Back by Can Sandra MD to asael corona and understanding confirmed on 11/04/2021 11:52:27 (ET). Electronically Signed: Can Sandra MD at 11:53 EST , Discharge Plan Triage Chief Complaint: Numb/Ting ED Provider: Asael Corona Dx/Rx/DC Orders Clinical Impression: Sensory deficit, left Prescriptions: No Action NK RF: 0 Primary Care Provider: Asael Pinedo Referrals: Asael Pinedo MD [Primary Care Provider] - Disposition Disposition: Acute Care Hospital [facility]
--- NOTE | 2021-11-04 11:40 | CT_ITS ---
STUDY: CT HEAD STROKE PROTOCOL W/O CONTRAST INJECTION REASON FOR EXAM: Male, 51 years old. Neuro deficit, acute, stroke suspected RADIATION DOSAGE (If Supplied By Facility): CTDIvol = ( 44.99 ) mGy, DLP = ( 812.98 ) mGycm TECHNIQUE: Transaxial CT imaging of the brain was performed without administration of intravenous contrast material. Individualized dose optimization techniques were used for this CT. COMPARISON: No relevant priors. FINDINGS: Normal soft tissue structures. Normal calvarium. Normal size ventricles and extra-axial spaces for the patient''s age. Normal white matter tracts of the cerebral hemispheres. Normal basal ganglia and thalami. Normal brainstem. Normal cerebellum. There is no intracranial hemorrhage. There are no findings of an acute ischemic infarction. Normal visualized paranasal sinuses. ASPECT score: CT/STROKE Brain/Head without Cont IMPRESSION: Normal unenhanced CT scan of the brain. N.B. : The above Results were Read Back by Can Sandra MD to keerthi corona and understanding confirmed on 11/04/2021 11:52:27 (ET). Electronically Signed: Can Sandra MD at 11:53 EST ,
--- NOTE | 2021-11-04 11:46 | CM.ED ---
SW Note Referral Source: Stroke Alert Referral Reason: Stroke Alert SW met with patient. Patient was able to engage in conversation easily. Reports he called his girlfriend, who resides in [place], and she is on her way. Patient has a daughter however, he has not contacted her until he knows what is going on. No family or other visitor in the room. SW remains available. Plan: Extrusion Bender remains available Blossom LOVE
--- NOTE | 2021-11-04 11:50 | ED.RN ---
Patient denies numbness and tingling at this time, complains of neck pain presently which has been ongoing.
[2021-11-04 11:56] LABS: Absolute Lymphocyte Count 1.88 X10^3/uL (0.83-4.51); Absolute Neutrophil Count 4.1 X10^3/uL (2.0-7.7); Basophil# 0.04 X10^3/uL; Basophil% 0.6 % (0-1); Eosinophil# 0.08 X10^3/uL; Eosinophils% 1.2 % (0-5); Hematocrit 42.2 % (40-54); Hemoglobin 15.2 g/dL (13.0-16.5); Lymphocyte # 1.88 X10^3/ul (0.83-4.51); Lymphocyte % 28.3 % (19-41); Mean Corpuscular Hgb 29.9 pg (27.0-32.0); Mean Corpuscular Volume 83.1 fL (80-94); Mean Platelet Vol. 8.7 fl (6.2-12.0); Monocyte# 0.49 X10^3/uL; Monocyte% 7.4 % (0-10); NRBC Flagged by Analyzer 0 % (0-5); Neutrophil # 4.13 X10^3/uL (2.7-7.7); Platelet Count 282 K/mm3 (150-450); RBC Distribution Width CV 11.9 % (11.6-14.6); RBC Distribution Width SD 35.8 fl (35.1-43.9); Red Blood Count 5.08 M/mm3 (4.6-6.2); White Blood Count 6.7 K/mm3 (4.4-11.0)
[2021-11-04 11:56] LABS: Bedside Glucose 102 mg/dL (74-106)
[2021-11-04 11:57] LABS: International Normalized Ratio 1.1; Partial Thromboplast Time 28.8 Seconds (24.1-36.2); Prothrombin Time (Protime)PT. 13.6 SECONDS (11.7-14.9)
[2021-11-04 12:07] LABS: BUN 15 mg/dL (7-18); BUN/Creat Ratio 12.8 RATIO (10-20); Chloride 109 mmol/L (98-107); Creatinine, Serum 1.17 mg/dL (0.70-1.30); EST Glomerular Filtration Rate 70 mL/min (>60); Est Glom Filt Rate - Afr Amer 84 mL/min (>60); Estimated Creatinine Clearance 77.12 ml/min; Glucose 100 mg/dL (74-106); Sodium Level 139 mmol/L (136-145); Troponin-I HS 5 pg/mL (3.0-78.0)
[2021-11-04 12:08] LABS: Anion Gap 3 (5-15)
--- NOTE | 2021-11-04 12:21 | RAD_ITS ---
HISTORY: Neuro deficit, acute, stroke suspected. TECHNIQUE: XR Chest 1 View. # of images incl. paperwork: 1. COMPARISON: 05/25/2019. FINDINGS: CARDIOMEDIASTINAL STRUCTURES: Cardiac silhouette not enlarged. Mediastinal contour unremarkable. LUNGS: Radiographically clear. PLEURA: No pleural effusion or pneumothorax. OSSEOUS STRUCTURES: Unremarkable. RAD/Chest 1 View IMPRESSION: No radiographic evidence of acute cardiopulmonary disease. at 1246 Reported and signed by: Roxana Quipse MD Electronically Signed: Roxana Quispe MD at 12:45 EST ,
--- NOTE | 2021-11-04 12:41 | MRI_ITS ---
EXAM: MR HEAD WITHOUT INTRAVENOUS CONTRAST CLINICAL INDICATION: cva NECK, LEFT JAW, ARM PAIN TECHNIQUE: Multiplanar and multisequence MR images of the brain were obtained without intravenous contrast. This report was created using [employer] report generation technology. COMPARISON: CT head of the same day FINDINGS: BRAIN AND EXTRA-AXIAL SPACES: Unremarkable. No intra- or extra-axial hemorrhage. No evidence of acute infarct. No intracranial mass or mass effect. There is preservation of the stahl/white matter interface. Posterior fossa structures are unremarkable. Ventricles are appropriate for age. No hydrocephalus. Basal cisterns are patent. SELLA: Unremarkable. Normal sella turcica, pituitary gland, infundibular stalk, optic chiasm and hypothalamus. AUDITORY SYSTEM: Unremarkable. The internal auditory canals are patent. BONES/JOINTS: Unremarkable. No discrete lytic or blastic abnormalities. SINUSES: Unremarkable as visualized. Clear. MASTOID AIR CELLS: Unremarkable as visualized. Clear. ORBITS: Unremarkable as visualized. Both globes, extraocular muscles, optic nerves and retrobulbar fat appear unremarkable. VASCULATURE: Unremarkable as visualized. Normal flow voids in the major intracranial circulation. MRI/Brain without Contrast IMPRESSION: Negative MRI brain without intravenous contrast. Electronically Signed: Reno Franklin MD at 14:52 EST ,
--- NOTE | 2021-11-04 12:43 | ECHOD_ITS ---
Reason For Study: TIA/CVA Procedure This was a 2D Doppler, Color Flow transthoracic echocardiogram. Exam performed portable in patient room. Left Ventricle Normal LV size. Left ventricular systolic function is normal. The estimated ejection fraction is 60 %. Normal diastology for age. No regional wall motion abnormalities noted. Right Ventricle Normal RV size. Normal systolic function. Atria Normal left atrium. Normal right atrium. Bubble contrast study negative for right to left interatrial shunt. Mitral Valve Normal mitral valve. Tricuspid Valve Normal tricuspid valve. Aortic Valve Normal aortic valve. Pulmonic Valve Normal pulmonic valve. Great Vessels Normal aortic root. The pulmonary artery is normal size. Normal inferior vena cava. Pericardium/Pleural No pericardial effusion. Medication Performed a rapid injection of agitated mix of 9 cc saline and 1cc air to assess for atrial septal defect. MMode/2D Measurements & Calculations LVIDd: 4.5 cm IVSd: 0.87 cm Ao root diam: 3.3 cm LVIDs: 2.3 cm LVPWd: 0.85 cm FS: 49.2 % LAV(MOD-sp4): 29.9 ml LA A4 area: 12.0 cm2 LA dimension(2D): 2.5 cm Time Measurements MV dec time: 0.26 sec Doppler Measurements & Calculations MV E max chi: 66.2 cm/sec Lat Peak E' Chi: 11.1 cm/sec Med Peak E' Chi: 10.4 cm/sec MV A max chi: 54.1 cm/sec E/E' lat: 6.0 E/E' med: 6.4 MV E/A: 1.2 Ao V2 max: 94.7 cm/sec LV V1 max: 71.0 cm/sec PA V2 max: 60.3 cm/sec Ao max P.6 mmHg LV V1 max P.0 mmHg ECHO/Echo Complete Interpretation Summary Normal LV size. Left ventricular systolic function is normal. The estimated ejection fraction is 60 %. Bubble contrast study negative for right to left interatrial shunt. Ordering Physician: Min Steven Referring Physician: Asael Pinedo Performed By: Bernarda Jordan, TEETEE, RVT
--- NOTE | 2021-11-04 12:46 | HP.PCM.HOS_ITS ---
HPI - General General Date of Admission: 11/04/21 Date of Service: 11/04/21 Chief Complaint: Left-sided numbness HPI Narrative CHEKO SOTOMAYOR, is a 51 M who presents left sided numbness. Patient has past medical history including degenerative joint disease of the neck for which he underwent surgery in March 2021. Patient states he was in his usual state of health till the morning of admission when he developed numbness involving the left shoulder this later radiated to the left jaw as well as the entire left side. Patient denied any subjective weakness. Presented to the emergency department due to the persistent nature of his symptoms. In the ED his NIH score was recorded to be 1. He underwent stat CT CTA of the head and neck which came back unremarkable. Admitted for subsequent inpatient evaluation. [facility] Home Medications NK 11/04/21 [History Last Taken Unknown] Allergy/AdvReac Type Severity Reaction Status Date / Time Penicillins Allergy Anaphylaxis Verified 11/04/21 11:05 no significant family history Surgical History Hx of neck surgery Social History Smoking Status: Current every day smoker tobacco type: cigarettes ROS ROS Narrative GENERAL: denies fever, chills, night sweats, weight loss, anorexia HEENT: denies headache, sinus congestion, or drainage, dysphagia RESPIRATORY: denies cough, sputum production, shortness of breath, dyspnea on exertion CARDIAC: denies chest pain, palpitations, orthopnea, PND GASTROINTESTINAL: denies abdominal pain, nausea, vomiting, melena, GENITOURINARY: denies dysuria, urgency, frequency, heamaturia EXTREMITY: denies swelling MUSCULOSKELETAL: denies current joint pain or tenderness NEUROLOGIC: Left-sided numbness, HEMATOLOGIC: denies easy bruising and/or hemorrhage INTEGUMENT: denies rashes PSYCHIATRIC: denies suicidal or homicidal ideation Vital Signs Vital Signs Vital Signs: 11/04/21 11:03 11/04/21 11:17 11/04/21 11:30 Temperature 97.8 F Temperature Source Temporal Pulse Rate 78 98 Respiratory Rate 14 16 Blood Pressure 171/110 H 156/98 H 162/110 H Blood Pressure Mean 130 117 127 Pulse Ox 100 99 Oxygen Delivery Method Room Air Room Air 11/04/21 11:45 11/04/21 12:00 11/04/21 12:04 Temperature Temperature Source Pulse Rate 98 78 Respiratory Rate 16 20 H Blood Pressure 162/110 H 173/103 H Blood Pressure Mean 127 126 Pulse Ox 99 95 Oxygen Delivery Method Room Air Room Air Room Air 11/04/21 12:30 11/04/21 12:45 Temperature 98.0 F Temperature Source Temporal Pulse Rate 74 68 Respiratory Rate 18 11 L Blood Pressure 158/103 H 158/103 H Blood Pressure Mean 121 121 Pulse Ox 96 98 Oxygen Delivery Method Room Air Room Air Weight Weight: 81 kg Body Mass Index (BMI) 25.6 Results Lab / Micro Data Result Diagrams: 11/04/21 11:40 11/04/21 11:40 Labs: Laboratory Results - last 24 hr 11/04/21 11:40: WBC 6.7, RBC 5.08, Hgb 15.2, Hct 42.2, MCV 83.1, MCH 29.9, MCHC 36.0, RDW Std Deviation 35.8, RDW Coeff of Cristina 11.9, Plt Count 282, MPV 8.7, Immature Gran % (Auto) 0.500, Neut % (Auto) 62.0, Lymph % (Auto) 28.3, [place] % (Auto) 7.4, Eos % (Auto) 1.2, Baso % (Auto) 0.6, Absolute Neuts (auto) 4.1, Absolute Lymphs (auto) 1.88, Nucleated RBC % 0 11/04/21 11:40: PT 13.6, INR 1.1, APTT 28.8 11/04/21 11:40: Sodium 139, Potassium 4.0, Chloride 109 H, Carbon Dioxide 27.0, Anion Gap 3 L, BUN 15, Creatinine 1.17, Estim Creat Clear Calc 77.12, Est GFR (MDRD) Af Amer 84, Est GFR (MDRD) Non-Af 70, BUN/Creatinine Ratio 12.8, Glucose 100, Calcium 9.0, Troponin I High Sens 5 11/04/21 11:50: POC Glucose 102 Radiology Impression Head/Neck CTA 11/04/21 11:35 IMPRESSION: Normal CTA Head and neck with contrast. N.B. : The above Results were Read Back by Can Sandra MD to keerthi corona and understanding confirmed on 11/04/2021 12:10:27 (ET). Electronically Signed: Can Sandra MD at 12:11 EST , ADDENDUM: 11/04/21 1218 IMPRESSION: Normal CTA Head and neck with contrast. N.B. : The above Results were Read Back by Can Sandra MD to keerthi corona and understanding confirmed on 11/04/2021 12:10:27 (ET). Electronically Signed: Can Sandra MD at 12:11 EST , Brain CT 11/04/21 11:40 IMPRESSION: Normal unenhanced CT scan of the brain. N.B. : The above Results were Read Back by Can Sandra MD to keerthi corona and understanding confirmed on 11/04/2021 11:52:27 (ET). Electronically Signed: Can Sandra MD at 11:53 EST , ADDENDUM: 11/04/21 1201 IMPRESSION: Normal unenhanced CT scan of the brain. N.B. : The above Results were Read Back by Can Sandra MD to keerthi corona and understanding confirmed on 11/04/2021 11:52:27 (ET). Electronically Signed: Can Sandra MD at 11:53 EST , Assessment & Plan Assessment/Plan (1) High cholesterol: (2) Sensory deficit, left: PLAN: Patient is a 51-year-old gentleman presented with left-sided numbness 1. Left-sided numbness ?Admitted to monitored bed plan is to rule out acute CVA. Patient initial head CT and CTA of the neck came back unremarkable. An MRI has been ordered pending verification from patient orthopedic surgery whether the metal piece in his neck is MRI safe. Differential diagnosis of patient left upper extremity numbness also includes cervical radiculopathy. CT of the neck without contrast ordered for subsequent evaluation 2. Dyslipidemia ?Per history currently not on any medication 3. Elevated blood pressure ?Patient is not a known hypertensive monitoring patient blood pressure with plans to initiate antihypertensives on discharge 4. Tobacco dependence - Counseled on cessation, offered nicotine patch for tobacco cravings 5. DVT prophylaxis ?HARESH Francisco Charges/Coding Visit Charges OBSV E&M: 80436 Initial observation care L3
[2021-11-04 13:43] LABS: Troponin-I HS 6 pg/mL (3.0-78.0)
[2021-11-04 14:13] LABS: Thyroid Stim Hormone (TSH) < 0.01 uIU/mL (0.358-3.74)
--- NOTE | 2021-11-04 14:41 | CHAPLAIN ---
Type of Pastoral Visit ___ Initial Visit ___ Follow-up Visit ___ On-call Visit ___ General Patient Visit ___ Spiritual Assessment ___ Family Conference ___ Bereavement _x__ Rapid Response ___ Code Blue ___ Other (describe below) Pastoral Care Referral From ___ Patient ___ Family ___ Nurse ___ Physician ___ Heat Transfer Technician ___ Electrical Appliance Repairer _x__ Other (describe below) Sacrament/Intervention ___ Active listening ___ Anointing ___ Confucianist ___ Bereavement ___ Communion ___ Jeannie exploration ___ ___ Life review ___ Prayer ___ Reconciliation ___ Sacrament of Sick _x__ Supportive presence ___ Wedding ___ Other (describe below) Pastoral Comments patient was on his way to CT; pt was alert and SW was present; waited in ED until SO came and escorted her to room; offered support to patient's SO
[2021-11-04] MEDS: 0.9% Normal Saline 1,000 ML 150 ML IV (14:56)
[2021-11-04] MEDS: Enoxaparin 40 MG/0.4 ML Syringe SC (14:57)
--- NOTE | 2021-11-04 17:03 | PCM.DC.SUM ---
Providers Date of Admission: 11/04/21 Primary Care Physician: Dr. Asael Pinedo MD Reason For Visit: TIA Diagnosis Discharge Diagnosis (1) High cholesterol: Status: Chronic Code(s): E78.00 - Pure hypercholesterolemia, unspecified (2) Sensory deficit, left: Status: Acute Code(s): R44.9 - Unspecified symptoms and signs involving general sensations and perceptions Medications at Discharge Home Medications NK 11/04/21 amlodipine 10 mg PO DAILY #60 tab 11/04/21 aspirin 81 mg PO BREAKFAST 60 Days #60 tab 11/04/21 atorvastatin 40 mg PO QHS 60 Days #60 tab 11/04/21 Hospital Course Summary of Care Provided Minutes Spent on Discharge: 35 Hospital Course: Patient is a 51-year-old gentleman presented with left-sided numbness 1. Left-sided numbness ?Admitted to monitored bed plan is to rule out acute CVA. Patient initial head CT and CTA of the neck came back unremarkable. An MRI has been ordered pending verification from patient orthopedic surgery whether the metal piece in his neck is MRI safe. Differential diagnosis of patient left upper extremity numbness also includes cervical radiculopathy. MRI was negative for acute cva 2. Dyslipidemia ?Per history currently not on any medication - Rx written for atorvastatin on discharge 3. Elevated blood pressure ?Patient is not a known hypertensive monitoring patient blood pressure with plans to initiate antihypertensives on discharge -Rx written for amlodipine on discharge 4. Tobacco dependence - Counseled on cessation, offered nicotine patch for tobacco cravings 5. DVT prophylaxis ?SC Lovenox Weight / BMI Weight Weight: 82.735 kg Body Mass Index (BMI) 26.2 ABG / Lab / Microbiology Data Result Diagrams: 11/04/21 11:40 11/04/21 11:40 Laboratory: Laboratory Results - last 24 hr 11/04/21 11:40: WBC 6.7, RBC 5.08, Hgb 15.2, Hct 42.2, MCV 83.1, MCH 29.9, MCHC 36.0, RDW Std Deviation 35.8, RDW Coeff of Cristina 11.9, Plt Count 282, MPV 8.7, Immature Gran % (Auto) 0.500, Neut % (Auto) 62.0, Lymph % (Auto) 28.3, [place] % (Auto) 7.4, Eos % (Auto) 1.2, Baso % (Auto) 0.6, Absolute Neuts (auto) 4.1, Absolute Lymphs (auto) 1.88, Nucleated RBC % 0 11/04/21 11:40: PT 13.6, INR 1.1, APTT 28.8 11/04/21 11:40: Sodium 139, Potassium 4.0, Chloride 109 H, Carbon Dioxide 27.0, Anion Gap 3 L, BUN 15, Creatinine 1.17, Estim Creat Clear Calc 77.12, Est GFR (MDRD) Af Amer 84, Est GFR (MDRD) Non-Af 70, BUN/Creatinine Ratio 12.8, Glucose 100, Calcium 9.0, Troponin I High Sens 5 11/04/21 11:50: POC Glucose 102 11/04/21 13:10: Troponin I High Sens 6 11/04/21 13:10: TSH < 0.01 L Radiography Diagnostic Testing: Radiology Impression Head/Neck CTA 11/04/21 11:35 IMPRESSION: Normal CTA Head and neck with contrast. N.B. : The above Results were Read Back by Can Sandra MD to asael corona and understanding confirmed on 11/04/2021 12:10:27 (ET). Electronically Signed: Can Sandra MD at 12:11 EST , ADDENDUM: 11/04/21 1218 IMPRESSION: Normal CTA Head and neck with contrast. N.B. : The above Results were Read Back by Can Sandra MD to asael corona and understanding confirmed on 11/04/2021 12:10:27 (ET). Electronically Signed: Can Sandra MD at 12:11 EST , Brain CT 11/04/21 11:40 IMPRESSION: Normal unenhanced CT scan of the brain. N.B. : The above Results were Read Back by Can Sandra MD to asael corona and understanding confirmed on 11/04/2021 11:52:27 (ET). Electronically Signed: Can Sandra MD at 11:53 EST , ADDENDUM: 11/04/21 1201 IMPRESSION: Normal unenhanced CT scan of the brain. N.B. : The above Results were Read Back by Can Sandra MD to asael cj and understanding confirmed on 11/04/2021 11:52:27 (ET). Electronically Signed: Can Sandra MD at 11:53 EST , Chest X-Ray 11/04/21 12:21 IMPRESSION: No radiographic evidence of acute cardiopulmonary disease. at 1246 Reported and signed by: Roxana Quispe MD Electronically Signed: Roxana Quispe MD at 12:45 EST , Brain MRI 11/04/21 12:41 IMPRESSION: Negative MRI brain without intravenous contrast. Electronically Signed: Reno Franklin MD at 14:52 EST , Echocardiogram 11/04/21 12:43 Interpretation Summary Normal LV size. Left ventricular systolic function is normal. The estimated ejection fraction is 60 %. Bubble contrast study negative for right to left interatrial shunt. Ordering Physician: Min Steven Referring Physician: Asael Pinedo Performed By: Bernarda Jordan, TEETEE, RVT D/C Instructions Discharge Diet: Low fat / Low cholesterol Discharge Activity: Return to Normal Activity Call your doctor if you observe: Fever of 101 or Higher, Shortness of breath, Fainting spells and Chest pain Meaningful Use Info Meaningful Use Diagnoses (Choose all that apply): None applicable Discharge Plan Admission Admit Date/Time: 11/04/21 12:39 Attending Provider: Min Steven Primary Care Provider: Asael Pinedo Discharge Orders/Prescriptions Prescriptions: New aspirin 81 mg Tablet,Chewable 81 mg PO BREAKFAST 60 Days Qty: 60 RF: 0 atorvastatin 40 mg tablet 40 mg PO QHS 60 Days Qty: 60 RF: 0 amlodipine 10 mg tablet 10 mg PO DAILY Qty: 60 RF: 0 No Action NK RF: 0 Referrals / Follow Up: Asael Pinedo MD [Primary Care Provider] - Within 1 Week Disposition Disposition (needs filled in before D/C Order can be placed): Home, Self Care Charges/Coding Visit Charges OBSV E&M: 07254 Observ/hosp same date L3
== END 2021-11-04 17:24 | disposition home or self-care (01) ==
LOC: ED 12:58 → PCU 13:04
PROVIDERS: Admitting Provider Internal Medicine; Emergency Provider Emergency Medicine; PCP Family Medicine; Visit Provider Internal Medicine
DX: R20.0 Anesthesia of skin (principal); E78.5 Hyperlipidemia, unspecified; F17.210 Nicotine dependence, cigarettes, uncomplicated; R03.0 Elevated blood-pressure reading, without diagnosis of hypertension; R29.701 NIHSS score 1; M50.30 Other cervical disc degeneration, unspecified cervical region
CPT/HCPCS: 70450; 70496; 70498; 70551; 71045; 80048; 82962; 84443; 84484; 85025; 85610; 85730; 93005; 93306; 94762; 96360; 96361; 96372; 97802; 99218; 99284; J7030; Q9967; A4216; G0378

== ENCOUNTER → 2022-02-07 | Outpatient (CLI) | payer BC, SELFPAY ==
[2022-02-07 12:22] LABS: Absolute Lymphocyte Count 1.96 X10^3/uL (0.83-4.51); Absolute Neutrophil Count 3.9 X10^3/uL (2.0-7.7); Basophil# 0.05 X10^3/uL; Basophil% 0.8 % (0-1); Eosinophil# 0.16 X10^3/uL; Eosinophils% 2.4 % (0-5); Hematocrit 47.6 % (40-54); Lymphocyte # 1.96 X10^3/ul (0.83-4.51); Lymphocyte % 29.7 % (19-41); Mean Corp Hgb Conc 33.6 g/dL (32-36); Mean Corpuscular Hgb 29.5 pg (27.0-32.0); Mean Corpuscular Volume 87.8 fL (80-94); Mean Platelet Vol. 8.8 fl (6.2-12.0); Monocyte# 0.51 X10^3/uL; Monocyte% 7.7 % (0-10); NRBC Flagged by Analyzer 0 % (0-5); Neutrophil # 3.89 X10^3/uL (2.7-7.7); Neutrophil % 59.1 % (47-70); Platelet Count 393 K/mm3 (150-450); RBC Distribution Width CV 11.8 % (11.6-14.6); Red Blood Count 5.42 M/mm3 (4.6-6.2); White Blood Count 6.6 K/mm3 (4.4-11.0)
[2022-02-07 12:57] LABS: Cholesterol 218 mg/dL (200); High Density Lipoprotein 41 mg/dL; Thyroid Stim Hormone (TSH) 0.01 uIU/mL (0.358-3.74); Triglycerides 102 mg/dL; Very Low Density Lipoprotein 20 mg/dL (5-40)
== END | disposition home or self-care (01) ==
LOC: MFPLAB 11:24
PROVIDERS: PCP Family Medicine; Referring Provider Family Medicine; Visit Provider Family Medicine
DX: R53.83 Other fatigue (principal); E78.5 Hyperlipidemia, unspecified
CPT/HCPCS: 36415; 80061; 84403; 84443; 85025

== ENCOUNTER → 2022-02-18 | Outpatient (CLI) | payer BC, SELFPAY ==
[2022-02-18 18:36] LABS: T4 Free Direct 0.99 ng/dL (0.76-1.46)
[2022-02-21 20:39] LABS: Thyroid Stim Immunoglob 0.64 IU/L (0.00-0.55)
== END | disposition home or self-care (01) ==
LOC: MFPLAB 16:16
PROVIDERS: PCP Family Medicine; Referring Provider Family Medicine; Visit Provider Family Medicine
DX: R79.89 Other specified abnormal findings of blood chemistry (principal)
CPT/HCPCS: 36415; 84439; 84445; 84481

== ENCOUNTER → 2022-03-06 | Outpatient (CLI) | payer BC, SELFPAY ==
[2022-03-06 16:00] LABS: Free T3 2.5 pg/mL (2.18-3.98); Thyroid Stim Hormone (TSH) 0.06 uIU/mL (0.358-3.74)
[2022-03-09 14:35] LABS: Thyroid Peroxidase AB 164 IU/mL (0-34)
== END | disposition home or self-care (01) ==
LOC: MFPLAB 14:10
PROVIDERS: PCP Family Medicine; Visit Provider Internal Medicine Endocrinology, Diabetes & Metabolism
DX: E06.3 Autoimmune thyroiditis (principal)
CPT/HCPCS: 36415; 84439; 84443; 84481; 86376

== ENCOUNTER → 2022-03-20 | Outpatient (CLI) | payer BC, SELFPAY ==
[2022-03-20 18:24] LABS: Thyroid Stim Hormone (TSH) 0.41 uIU/mL (0.358-3.74)
== END | disposition home or self-care (01) ==
PROVIDERS: PCP Family Medicine; Referring Provider Family Medicine; Visit Provider Internal Medicine Endocrinology, Diabetes & Metabolism
DX: E06.3 Autoimmune thyroiditis (principal)
CPT/HCPCS: 36415; 84439; 84443

== ENCOUNTER → 2022-04-15 | Outpatient (CLI) | payer BC, SELFPAY ==
[2022-04-15 17:57] LABS: Absolute Lymphocyte Count 2.15 X10^3/uL (0.83-4.51); Absolute Neutrophil Count 4.7 X10^3/uL (2.0-7.7); Basophil# 0.05 X10^3/uL; Basophil% 0.7 % (0-1); Eosinophil# 0.06 X10^3/uL; Eosinophils% 0.8 % (0-5); Hemoglobin 15.1 g/dL (13.0-16.5); Lymphocyte # 2.15 X10^3/ul (0.83-4.51); Lymphocyte % 29.2 % (19-41); Mean Corp Hgb Conc 34.3 g/dL (32-36); Mean Corpuscular Hgb 29.9 pg (27.0-32.0); Mean Corpuscular Volume 87.1 fL (80-94); Mean Platelet Vol. 9.1 fl (6.2-12.0); Monocyte# 0.39 X10^3/uL; Monocyte% 5.3 % (0-10); NRBC Flagged by Analyzer 0 % (0-5); Neutrophil # 4.69 X10^3/uL (2.7-7.7); Neutrophil % 63.7 % (47-70); Platelet Count 334 K/mm3 (150-450); RBC Distribution Width CV 12.2 % (11.6-14.6); RBC Distribution Width SD 38.7 fl (35.1-43.9); Red Blood Count 5.05 M/mm3 (4.6-6.2); White Blood Count 7.4 K/mm3 (4.4-11.0)
[2022-04-15 18:16] LABS: ALB/GLOB Ratio 1.1 RATIO (0.9-2.4); AST(SGOT) 23 U/L (15-37); Alanine Aminotransfer ALT/SGPT 43 U/L (16-61); Albumin, Serum 3.8 g/dL (3.2-5.0); Alkaline Phosphatase 65 U/L (45-117); Anion Gap 5 (5-15); BUN 13 mg/dL (7-18); BUN/Creat Ratio 11.7 RATIO (10-20); Calcium,Total 8.6 mg/dL (8.5-10.1); Chloride 108 mmol/L (98-107); Creatinine, Serum 1.11 mg/dL (0.70-1.30); EST Glomerular Filtration Rate 74 mL/min (>60); Est Glom Filt Rate - Afr Amer 89 mL/min (>60); Globulin 3.4 g/dL (2.2-4.2); Glucose 87 mg/dL (74-106); Protein, Total 7.2 g/dL (6.4-8.2); Sodium Level 139 mmol/L (136-145)
[2022-04-15 18:43] LABS: Vitamin B12 339 pg/mL (211-911)
[2022-04-15 19:27] LABS: T4 Free Direct 0.97 ng/dL (0.76-1.46); Thyroid Stim Hormone (TSH) 0.14 uIU/mL (0.358-3.74)
== END | disposition home or self-care (01) ==
LOC: MFPLAB 15:41
PROVIDERS: Family Medicine; Internal Medicine Endocrinology, Diabetes & Metabolism; PCP Family Medicine; Referring Provider Family Medicine; Visit Provider Family Medicine
DX: R20.2 Paresthesia of skin (principal); E06.3 Autoimmune thyroiditis
CPT/HCPCS: 36415; 80053; 82607; 84439; 84443; 85025

== ENCOUNTER → 2022-06-03 | Outpatient (CLI) | payer BC, SELFPAY ==
[2022-06-03 20:17] LABS: Free T3 6.5 pg/mL (2.18-3.98); Thyroid Stim Hormone (TSH) < 0.01 uIU/mL (0.358-3.74)
== END | disposition home or self-care (01) ==
LOC: MTLAB 15:23
PROVIDERS: PCP Family Medicine; Referring Provider Internal Medicine Endocrinology, Diabetes & Metabolism; Visit Provider Internal Medicine Endocrinology, Diabetes & Metabolism
DX: E06.3 Autoimmune thyroiditis (principal)
CPT/HCPCS: 36415; 84439; 84443; 84481

== ENCOUNTER → 2022-06-26 | Outpatient (CLI) | payer BC, SELFPAY ==
[2022-06-26 18:29] LABS: Free T3 6.9 pg/mL (2.18-3.98); T4 Free Direct 1.96 ng/dL (0.76-1.46); Thyroid Stim Hormone (TSH) < 0.01 uIU/mL (0.358-3.74)
== END | disposition home or self-care (01) ==
LOC: MFPLAB 16:26
PROVIDERS: PCP Family Medicine; Referring Provider Family Medicine; Visit Provider Nurse Practitioner Family
DX: E06.3 Autoimmune thyroiditis (principal)
CPT/HCPCS: 36415; 84439; 84443; 84481

== ENCOUNTER → 2022-07-07 | Outpatient (CLI) | payer BC, SELFPAY ==
--- NOTE | 2022-07-07 08:59 | NM_ITS ---
STUDY: NUCLEAR MEDICINE RADIOPHARMACEUTICAL THERAPY ORAL REASON FOR EXAM: Male, 52 years old. Treatment dose -- 15 mci I131 -- HYPERTHYROIDISM TECHNIQUE: The patient ingested 16.3 mCi of IODINE-131 for treatment of hyperthyroidism. COMPARISON: None. NM/Therapy I-131 IMPRESSION: Patient ingested 16.3 mCi of IODINE-131 for treatment of hyperthyroidism. Electronically Signed: Can Sandra MD at 9:44 EST ,
== END | disposition home or self-care (01) ==
LOC: NM 08:58
PROVIDERS: PCP Family Medicine; Referring Provider Internal Medicine Endocrinology, Diabetes & Metabolism; Visit Provider Internal Medicine Endocrinology, Diabetes & Metabolism
DX: E05.00 Thyrotoxicosis with diffuse goiter without thyrotoxic crisis or storm (principal)
CPT/HCPCS: 79005; A9517

== ENCOUNTER → 2022-08-26 | Outpatient (CLI) | payer BC, SELFPAY ==
[2022-08-26 18:13] LABS: Free T3 0.9 pg/mL (2.18-3.98); T4 Free Direct 0.23 ng/dL (0.76-1.46)
== END | disposition home or self-care (01) ==
LOC: MFPLAB 15:47
PROVIDERS: PCP Family Medicine; Visit Provider Internal Medicine Endocrinology, Diabetes & Metabolism
DX: E05.00 Thyrotoxicosis with diffuse goiter without thyrotoxic crisis or storm (principal)
CPT/HCPCS: 36415; 84439; 84443; 84481

== ENCOUNTER → 2022-11-20 | Outpatient (CLI) | payer BC, SELFPAY ==
[2022-11-20 19:22] LABS: Free T3 2.1 pg/mL (2.18-3.98); T4 Free Direct 0.96 ng/dL (0.76-1.46)
== END | disposition home or self-care (01) ==
LOC: MFPLAB 16:04
PROVIDERS: PCP Family Medicine; Visit Provider Internal Medicine Endocrinology, Diabetes & Metabolism
DX: E03.9 Hypothyroidism, unspecified (principal); E05.00 Thyrotoxicosis with diffuse goiter without thyrotoxic crisis or storm; E06.3 Autoimmune thyroiditis
CPT/HCPCS: 36415; 84439; 84443; 84481

== ENCOUNTER → 2023-01-27 | Outpatient (CLI) | payer BC, SELFPAY ==
[2023-01-27 18:21] LABS: T4 Free Direct 1.06 ng/dL (0.76-1.46)
== END | disposition home or self-care (01) ==
LOC: MFPLAB 15:31
PROVIDERS: PCP Family Medicine; Visit Provider Nurse Practitioner Family
DX: E03.9 Hypothyroidism, unspecified (principal)
CPT/HCPCS: 36415; 84439; 84443

== ENCOUNTER → 2023-04-01 | Outpatient (CLI) | payer BC, SELFPAY ==
[2023-04-01 17:59] LABS: T4 Free Direct 1.16 ng/dL (0.76-1.46); Thyroid Stim Hormone (TSH) 8.93 uIU/mL (0.358-3.74)
== END | disposition home or self-care (01) ==
LOC: MFPLAB 15:08
PROVIDERS: PCP Family Medicine; Visit Provider Internal Medicine Endocrinology, Diabetes & Metabolism
DX: E03.9 Hypothyroidism, unspecified (principal)
CPT/HCPCS: 36415; 84439; 84443

== ENCOUNTER → 2023-05-22 | Outpatient (CLI) | payer BC, SELFPAY ==
[2023-05-22 13:42] LABS: T4 Free Direct 1.25 ng/dL (0.76-1.46); Thyroid Stim Hormone (TSH) 2.53 uIU/mL (0.358-3.74)
== END | disposition home or self-care (01) ==
LOC: MFPLAB 10:32
PROVIDERS: PCP Family Medicine; Visit Provider Internal Medicine Endocrinology, Diabetes & Metabolism
DX: E03.9 Hypothyroidism, unspecified (principal)
CPT/HCPCS: 36415; 84439; 84443

== ENCOUNTER → 2023-10-21 | Outpatient (CLI) | payer BC, SELFPAY ==
--- NOTE | 2023-10-21 16:13 | RAD_ITS ---
EXAM: XR ABDOMEN, 3 OR MORE VIEWS CLINICAL INDICATION: ABD PAIN TECHNIQUE: Frontal view of the abdomen/pelvis with upright view of the abdomen and one or more additional views. COMPARISON: 10/29/2020 FINDINGS: LOWER THORAX: No acute pathology. INTRAPERITONEAL SPACE: No free air. GASTROINTESTINAL TRACT: No significant abnormality. Non-obstructive. No bowel or stomach distention. ORGANS: Normal as visualized. No organomegaly. No abnormal calcifications. BONES/JOINTS: No acute pathology. SOFT TISSUES: No acute pathology. RAD/Abdomen Single View IMPRESSION: Normal abdominal x-rays. Electronically Signed: Rojelio Nguyen DO at 23:17 EST ,
[2023-10-21 17:36] LABS: Absolute Lymphocyte Count 2.11 X10^3/uL (0.83-4.51); Absolute Neutrophil Count 5.3 X10^3/uL (2.0-7.7); Basophil# 0.05 X10^3/uL; Basophil% 0.6 % (0-1); Eosinophil# 0.09 X10^3/uL; Eosinophils% 1.1 % (0-5); Hematocrit 47.8 % (40-54); Hemoglobin 16.5 g/dL (13.0-16.5); Lymphocyte # 2.11 X10^3/ul (0.83-4.51); Mean Corp Hgb Conc 34.5 g/dL (32-36); Mean Corpuscular Hgb 29.7 pg (27.0-32.0); Mean Platelet Vol. 8.8 fl (6.2-12.0); Monocyte# 0.54 X10^3/uL; Monocyte% 6.7 % (0-10); NRBC Flagged by Analyzer 0 % (0-5); Neutrophil % 65.2 % (47-70); Platelet Count 340 K/mm3 (150-450); RBC Distribution Width CV 11.8 % (11.6-14.6); RBC Distribution Width SD 36.9 fl (35.1-43.9); Red Blood Count 5.56 M/mm3 (4.6-6.2); White Blood Count 8.1 K/mm3 (4.4-11.0)
[2023-10-21 18:11] LABS: ALB/GLOB Ratio 1.1 RATIO (0.9-2.4); AST(SGOT) 18 U/L (15-37); Alanine Aminotransfer ALT/SGPT 48 U/L (16-61); Albumin, Serum 3.9 g/dL (3.2-5.0); Alkaline Phosphatase 69 U/L (45-117); Anion Gap 1 (5-15); BUN 15 mg/dL (7-18); BUN/Creat Ratio 13.3 RATIO (10-20); Calcium,Total 9.4 mg/dL (8.5-10.1); Chloride 107 mmol/L (98-107); Creatinine, Serum 1.13 mg/dL (0.70-1.30); EST Glomerular Filtration Rate 72 mL/min (>60); Est Glom Filt Rate - Afr Amer 87 mL/min (>60); Globulin 3.6 g/dL (2.2-4.2); Glucose 92 mg/dL (74-106); Protein, Total 7.5 g/dL (6.4-8.2); Sodium Level 138 mmol/L (136-145)
--- OUTSIDE RECORDS SUMMARY | 2023-10-21 19:46 | XMS RPT_ITS | CCD ---
Author Name Unknown Address [address] [place] [id number] Organization [facility] Care Team Providers Care Recoverer Name Role Phone Eduardo Hennessy DO Unavailable Allergies Allergy Classification Reported Allergen(s) Allergy Type Date of Onset Reaction(s) Facility (1 source) Penicillin G Drug Allergy 10-27-2017 [facility] Work Phone: Problems Active Problems Problem Classification Problem Date Documented Date Episodic/Chronic Joint disorders and dislocations; trauma-related (1 source) Chondromalacia of patella; Translations: [Chondromalacia patellae, right knee] Onset: 06-05-2021 06-05-2021 Chronic Osteoarthritis (1 source) Osteoarthritis of acromioclavicular joint; Translations: [Primary osteoarthritis, right shoulder] Onset: 11-13-2017 11-13-2017 Chronic Spondylosis; intervertebral disc disorders; other back problems (2 sources) Degeneration of lumbar intervertebral disc; Translations: [Other intervertebral disc degeneration, lumbar region] Onset: 10-29-2020 01-08-2021 Chronic Spondylosis; intervertebral disc disorders; other back problems (2 sources) Lumbar radiculopathy; Translations: [Radiculopathy, lumbar region] Onset: 10-29-2020 10-18-2021 Episodic Sprains and strains (1 source) Strain of neck muscle; Translations: [Strain of muscle, fascia and tendon at neck level, initial encounter] Onset: 10-18-2021 10-18-2021 Episodic Past or Other Problems Problem Classification Problem Date Documented Date Episodic/Chronic Other connective tissue disease (2 sources) Patellar tendonitis; Translations: [Patellar tendinitis, left knee] Onset: 06-05-2021 06-05-2021 Episodic Other connective tissue disease (2 sources) Impingement syndrome of shoulder region; Translations: [Impingement syndrome of right shoulder] Onset: 10-27-2017 12-09-2017 Episodic Other connective tissue disease (1 source) Nontraumatic rotator cuff tear; Translations: [Incomplete rotator cuff tear or rupture of left shoulder, not specified as traumatic] Onset: 11-13-2017 11-13-2017 Episodic Other connective tissue disease (1 source) Bicipital tendinitis, left shoulder; Translations: [Bicipital tenosynovitis] Onset: 11-13-2017 11-13-2017 Episodic Other non-traumatic joint disorders (1 source) Pain in elbow; Translations: [Pain in left elbow] Onset: 08-07-2020 08-07-2020 Episodic Other skin disorders (1 source) Localized swelling, mass and lump, right upper limb; Translations: [Localized superficial swelling, mass, or lump] Onset: 03-25-2019 03-28-2019 Episodic Other upper respiratory disease (1 source) Hypertrophy of nasal turbinates; Translations: [Hypertrophy of nasal turbinates] Onset: 03-08-2018 03-08-2018 Episodic Other upper respiratory disease (1 source) Deviated nasal septum; Translations: [Deviated nasal septum] Onset: 03-08-2018 03-08-2018 Episodic Residual codes; unclassified (1 source) History of surgical procedure on cervical spine; Translations: [Other specified postprocedural states] Onset: 05-02-2021 05-02-2021 Episodic Unclassified (1 source) Problem Results Test Name Value Interpretation Reference Range Facil ity Vital Signs Date Time Vital Sign Value Performing Clinician Facility NEGATED: Highlighted [id number] Body height 177.8 cm Jeanette Norris AT [facility] Work Phone: NEGATED: Highlighted [id number] Body height 178 cm Jeanette Norris AT [facility] Work Phone: NEGATED: Highlighted [id number] 14:23-0400 Body mass index (BMI) [Ratio] 25.49 kg/m2 Jeanette Norris AT [facility] Work Phone: NEGATED: Highlighted [id number] Body weight 80.29 kg Jeanette Norris AT [facility] Work Phone: NEGATED: Highlighted [id number] Body weight 80 kg Jeanette Norris AT [facility] Work Phone: Procedures Date Procedure Procedure Detail Performing Clinician Start: 12-10-2021 End: 12-11-2021 BP scrn no perf at interval Eduardo Londono Hennessy DO Work Phone: Start: 12-10-2021 End: 12-11-2021 Calc BMI abv up cesia f/u Eduardo Londono Hennessy DO Work Phone: Start: 12-10-2021 End: 12-11-2021 Current tobacco non-user cad cap copd pv dm [employer] DO Work Phone: Start: 12-10-2021 End: 12-11-2021 Docrev cur meds by elig clin Eduardo Londono Hennessy DO Work Phone: Start: 12-10-2021 End: 12-11-2021 No doc of pain [employer] Hennessy DO Work Phone: Start: 12-10-2021 End: 12-11-2021 Patient encounter procedure [employer] Hennessy DO Work Phone: Start: 04-30-2018 H/O: surgery Status post na brent septoplasty Jeanette Norris AT NEGATED: Highlighted rowStart: 12-10-2021 End: 12-10-2021 Documentation of current medications Jeanette Norris AT Plan of Treatment Date Care Activity Detail Author Start: 04-08-2022 End: 04-08-2022 Patient encounter procedure Appointment [facility] Work Phone: Start: 12-10-2021 End: 12-10-2021 Radex spine cervical 4 or 5 views XR CERVICAL 4VWS FLEX/EXT [facility] Work Phone: Social History Date Type Detail Facility Start: 12-11-2021 End: 12-11-2021 Assertion Unknown if ever smoked [facility] Work Phone: NEGATED: Highlighted rowStart: 12-10-2021 End: 12-10-2021 Employment detail Employment detail [facility] Work Phone: Evaluation note Note Date & Type Note Facility Evaluation note There may be informa tion available, but it has not been provided by the sender. [facility] Work Phone: Instructions Note Date & Type Note Facility [facility] Work Phone: Chief Complaint Chief Complaint Description Start Date neck post Anterior cervical discectomy and decompression C5-C6 with large subligamentous disc herniation retrieval. Artificial disc replacement C5-C6. on 04/15/2021 Preliminary chief co mplaint data, not yet signed by the author as of Advance Directives There may be information available, but it has not been provided by the sender. Family History There may be information available, but it has not been provided by the sender. Additional Source Comments Reason for Visit (unrecogniz ed section and content) FOR RECORDS PERTAINING TO PATIENTS WHO ARE OR HAVE BEEN ENROLLED IN A CHEMICAL DEPENDENCY/SUBSTANCEABUSE PROGRAM, SOME INFORMATION MAY BE OMITTED. This clinical summary was aggregated from multiple sources. Caution should be exercised in using it in the provision of clinical care. This summary normalizes information from multiple sources, and as a consequence, information in this document may materially change the coding, format and clinical context of patient data. In addition, data may be omitted in some cases. CLINICAL DECISIONS SHOULD BE BASED ON THE PRIMARY CLINICAL RECORDS. [employer] provides no warranty or guarantee of the accuracy or completeness of information in this document.
== END | disposition home or self-care (01) ==
PROVIDERS: PCP Family Medicine; Referring Provider Family Medicine; Visit Provider Family Medicine
DX: R10.9 Unspecified abdominal pain (principal)
CPT/HCPCS: 36415; 74018; 80053; 85025

== ENCOUNTER → 2024-02-05 | Outpatient (CLI) | payer BC, SELFPAY ==
--- NOTE | 2024-02-05 15:42 | RAD_ITS ---
EXAM: XR LEFT SHOULDER COMPLETE, 2 OR MORE VIEWS CLINICAL INDICATION: SHOULDER PAIN TECHNIQUE: Two or more views of the left shoulder. COMPARISON: No relevant prior studies available. FINDINGS: BONES/JOINTS: Unremarkable. No acute fracture. No subluxation. Normal alignment. Preservation of the joint space. No sclerotic or destructive changes observed. SOFT TISSUES: Unremarkable. No soft tissue swelling or gas. No radiopaque foreign body. RAD/Shoulder min 2 Views IMPRESSION: Negative left shoulder x-rays. Electronically Signed: Beni Gill MD at 0:16 EDT ,
== END | disposition home or self-care (01) ==
LOC: MTRAD 15:41
PROVIDERS: PCP Family Medicine; Referring Provider Family Medicine; Visit Provider Family Medicine
DX: M25.512 Pain in left shoulder (principal)
CPT/HCPCS: 73030

== ENCOUNTER → 2024-03-18 | Outpatient (CLI) | payer BC, SELFPAY ==
--- NOTE | 2024-03-18 16:06 | RAD_ITS ---
STUDY: X-RAY - LEFT KNEE REASON FOR EXAM: Male, 54 years old. KNEE PAIN TECHNIQUE: 4 view(s) of the knee. COMPARISON: None. FINDINGS: Normal visualized distal femur. Normal visualized proximal tibia and fibula. Normal proximal tibiofibular articulation. Normal medial femorotibial compartment. Normal lateral femorotibial compartment. Normal patellofemoral articulation. The soft tissue structures are unremarkable. RAD/Knee 4 or More Views IMPRESSION: Normal x-ray examination of the knee. Electronically Signed: Erik Moss MD at 16:24 EDT ,
[2024-03-18 18:08] LABS: Free T3 2.2 pg/mL (2.18-3.98); T4 Free Direct 1.19 ng/dL (0.76-1.46); Thyroid Stim Hormone (TSH) 2.92 uIU/mL (0.358-3.74)
== END | disposition home or self-care (01) ==
PROVIDERS: PCP Family Medicine; Referring Provider Family Medicine; Visit Provider Family Medicine
DX: M25.562 Pain in left knee (principal); E05.90 Thyrotoxicosis, unspecified without thyrotoxic crisis or storm
CPT/HCPCS: 36415; 73564; 84439; 84443; 84481

== ENCOUNTER → 2024-11-02 | Outpatient (CLI) | payer BC, SELFPAY ==
[2024-11-02 17:51] LABS: Absolute Lymphocyte Count 2.53 X10^3/uL (0.83-4.51); Absolute Neutrophil Count 5.6 X10^3/uL (2.0-7.7); Basophil# 0.09 X10^3/uL; Eosinophil# 0.14 X10^3/uL; Eosinophils% 1.6 % (0-5); Hematocrit 44.3 % (40-54); Hemoglobin 15.4 g/dL (13.0-16.5); Lymphocyte # 2.53 X10^3/ul (0.83-4.51); Mean Corp Hgb Conc 34.8 g/dL (32-36); Mean Corpuscular Hgb 29.7 pg (27.0-32.0); Mean Corpuscular Volume 85.4 fL (80-94); Mean Platelet Vol. 9.1 fl (6.2-12.0); Monocyte# 0.69 X10^3/uL; Monocyte% 7.6 % (0-10); NRBC Flagged by Analyzer 0 % (0-5); Neutrophil # 5.55 X10^3/uL (2.7-7.7); Neutrophil % 61.5 % (47-70); Platelet Count 346 K/mm3 (150-450); Red Blood Count 5.19 M/mm3 (4.6-6.2)
[2024-11-02 19:42] LABS: ALB/GLOB Ratio 1.5 RATIO (0.9-2.4); AST(SGOT) 24 U/L (<=37); Alanine Aminotransfer ALT/SGPT 36 U/L (<=46); Albumin, Serum 4.3 g/dL (3.5-5.0); Alkaline Phosphatase 68 U/L (40-129); Anion Gap 14 (5-15); BUN 18 mg/dL (4-19); BUN/Creat Ratio 14.4 RATIO (10-20); Calcium,Total 9.4 mg/dL (7.6-11.0); Carbon Dioxide 20.9 mmol/L (21.0-32.0); Chloride 101 mmol/L (98-108); Cholesterol 229 mg/dL (<=200); Creatinine, Serum 1.24 mg/dL (0.70-1.20); EST Glomerular Filtration Rate 69 (>60); Free T3 2.9 pg/mL (2.18-3.98); Globulin 2.9 g/dL (2.2-4.2); Glucose 93 mg/dL (70-99); High Density Lipoprotein 33 mg/dL; Low Density Lipoprotein Calc. 141 mg/dL; Potassium 4.1 mmol/L (3.3-5.1); Protein, Total 7.2 g/dL (5.9-8.4); Sodium Level 136 mmol/L (133-145); Total Bilirubin 0.26 mg/dL (0.00-1.30); Triglycerides 274 mg/dL; Very Low Density Lipoprotein 55 mg/dL (5-40); cholesterol:hdl ratio screen 6.86
[2024-11-09 13:08] LABS: Testosterone, Total 233 ng/dL (264-916)
== END | disposition home or self-care (01) ==
LOC: MFPLAB 16:14
PROVIDERS: PCP Family Medicine; Referring Provider Family Medicine; Visit Provider Family Medicine
DX: E05.90 Thyrotoxicosis, unspecified without thyrotoxic crisis or storm (principal); R53.83 Other fatigue; E78.5 Hyperlipidemia, unspecified
CPT/HCPCS: 36415; 80053; 80061; 84402; 84403; 84439; 84443; 84481; 85025

== ENCOUNTER → 2024-12-22 | Outpatient (CLI) | payer BC, SELFPAY ==
--- NOTE | 2024-12-22 15:30 | RAD_ITS ---
PROCEDURE: CERV SPINE OBL/FLEX/EXT COMP 12/22/2024 REASON FOR EXAM: CERVICALGIA TECHNIQUE: Neutral, flexed and extended lateral views of the cervical spine. FINDINGS: Vertebrae: No fracture. disc spaces: Focal disc space narrowing and osteophyte formation at C6-C7 consistent with degenerative disc disease. Alignment: Disc space prosthesis at C5/C6 with anatomic alignment. No subluxation on the flexion or extension views to suggest instability. soft tissues: Unremarkable Other: RAD/Cerv Spine Obl/Flex/Ext Comp IMPRESSION: Disc space prosthesis at C5/C6 with anatomic alignment. Degenerative disc disease at C6-C7. No instability. Disclaimer: Reading Location: [facility]
== END | disposition home or self-care (01) ==
LOC: MTRAD 15:29
PROVIDERS: PCP Family Medicine; Referring Provider Family Medicine; Visit Provider Family Medicine
DX: M54.2 Cervicalgia (principal)
CPT/HCPCS: 72052

== ENCOUNTER → 2025-02-28 | Outpatient (CLI) | payer BC, SELFPAY ==
[2025-02-28 18:26] LABS: Cholesterol 133 mg/dL (<=200); Low Density Lipoprotein Calc. 75 mg/dL; Triglycerides 132 mg/dL; Very Low Density Lipoprotein 26 mg/dL (5-40); cholesterol:hdl ratio screen 4.17
[2025-02-28 19:13] LABS: Free T3 3.1 pg/mL (2.18-3.98)
== END | disposition home or self-care (01) ==
LOC: MFPLAB 16:07
PROVIDERS: PCP Family Medicine; Referring Provider Family Medicine; Visit Provider Family Medicine
DX: E05.90 Thyrotoxicosis, unspecified without thyrotoxic crisis or storm (principal); E78.5 Hyperlipidemia, unspecified
CPT/HCPCS: 36415; 80061; 84439; 84443; 84481

== ENCOUNTER → 2025-08-28 | Outpatient (CLI) | payer BC, SELFPAY ==
--- OUTSIDE RECORDS SUMMARY | 2025-08-28 12:19 | XMS RPT_ITS | CCD ---
Author Organization [facility] Care Team Providers Care Inpatient Services Rn Name Role Phone Gerhard ACE Eduardo Londono Unavailable Dr. Asael Pinedo Primary Care Provider Dr. Asael Moe Emergency Provider Dr. Min Steven Admit Provider Unavailable Maurizio, Dr. Copeland Attending Provider Unavailable Maurizio, Dr. Copeland Other Provider Unavailable Dr. Francesco Pizarro Attending Provider Dr. Asael Pinedo Primary Care Provider Khris, Dr. Vyas Referring Provider Dr. Perez Black Attending Provider Khris HAIDER, Dr. Vyas Primary Care Provider Khris HAIDER, Dr. Vyas Attending Provider Khris HAIDER, Dr. Vyas Referring Provider Khris HAIDER, Dr. Vyas Primary Care Provider Khris HAIDER, Dr. Vyas Attending Provider Khris HAIDER, Dr. Vyas Referring Provider Asael Pinedo Primary Care Unavailable Khris, Asael Referring Unavailable Khris, Asael Attending Unavailable Khris, Asael Primary Care Unavailable Khris, Asael Referring Unavailable Khris, Asael Attending Unavailable Khris, Asael Referring Unavailable Khris, Asael Attending Unavailable Khris, Asael Primary Care Unavailable Khris, Asael Referring Unavailable Perez Black Attending Unavailable Khris, Asael Primary Care Unavailable Khris, Asael Referring Unavailable Khris, Asael Attending Unavailable Khris, Asael Primary Care Unavailable Allergies Allergy Classification Reported Allergen(s) Allergy Type Date of Onset Reaction(s) Facility (1 source) Penicillin G Drug Allergy 8 [facility] Work Phone: (14 sources) Penicillins; Translations: [Penicillins] Allergy to substance 2 Anaphylaxis [facility] (11 sources) rosuvastatin Drug Allergy 2 Vomiting [facility] (1 source) rosuvastatin Drug Allergy 3 [facility] Repository Medications Current Medications Medication Drug Class(es) Dates Sig (Normalized) Sig (Original) [place] (Nk) (4 sources) Start: 11-04-2021 [place] (Nk) Active November 04, 2021 1:00am tiZANidine 2 mg oral capsule (2 sources) Central alpha-2 Adrenergic Agonist Start: 06-03-2024 take 1 capsule by mouth every eight hours as needed Tizanidine 2 mg capsule Active 2 mg PO Q8H as needed June 03, 2024 12:00am Completed/Discontinued Medications Medication Drug Class(es) Dates Sig (Normalized) Sig (Original) amLODIPine 10 mg oral tablet (13 sources) Dihydropyridine Calcium Channel Deshawn Start: 11-04-2021 End: 05-26-2023 take 1 tablet by mouth once daily Amlodipine 10 mg tablet Discontinued 10 mg PO DAILY 60 0 November 04, 2021 1:00am May 26, 2023 2:56pm aspirin 81 mg chewable tablet (13 sources) Platelet Aggregation Inhibitor, Nonsteroidal Anti-inflammatory Drug Start: 11-04-2021 End: 05-26-2023 take 1 tablet by mouth at breakfast Aspirin 81 mg Tablet,Chewable Discontinued 81 mg PO WITH BREAKFAST 60 60 0 November 04, 2021 1:00am May 26, 2023 2:56pm atorvastatin 40 mg oral tablet (13 sources) HMG-CoA Reductase Inhibitor Start: 11-04-2021 End: 05-26-2023 take 1 tablet by mouth at bedtime Atorvastatin 40 mg tablet Discontinued 40 mg PO AT BEDTIME 60 60 0 November 04, 2021 1:00am May 26, 2023 2:56pm levothyroxine sodium 0.125 mg oral tablet (20 sources) l-Thyroxine Start: 04-02-2023 End: 06-03-2024 take 1 tablet by mouth once daily Levothyroxine 125 mcg tablet Discontinued 125 ug PO DAILY 90 1 November 09, 2023 12:04pm June 03, 2024 4:09pm Start: 01-28-2023 End: 04-02-2023 take 2 tablets by mouth once daily Levothyroxine 100 mcg tablet Discontinued 100 ug PO .QD, 2 on Sundays 90 January 28, 2023 7:20am April 02, 2023 7:40am Start: 11-21-2022 End: 01-28-2023 take 1 tablet by mouth once daily Levothyroxine 100 mcg tablet Discontinued 100 ug PO DAILY 90 November 21, 2022 12:00am January 28, 2023 7:20am Start: 08-27-2022 End: 11-21-2022 take 1 tablet by mouth once daily Levothyroxine 88 mcg tablet Discontinued 88 ug PO DAILY 30 August 27, 2022 1:00am November 21, 2022 7:58am Acquired hypothyroidism Hypothyroidism, unspecified methIMAzole 5 mg oral tablet (9 sources) Thyroid Hormone Synthesis Inhibitor Start: 06-04-2022 End: 05-22-2023 take 1 tablet by mouth once daily Methimazole 5 mg tablet Discontinued 5 mg PO DAILY 60 June 04, 2022 12:00am May 22, 2023 10:36am Autoimmune thyroiditis Autoimmune thyroiditis Problems Active Problems Problem Classification Problem Date Documented Date Episodic/Chronic Disorders of lipid metabolism (15 sources) Hypercholesterolemia; Translations: [Pure hypercholesterolemia, unspecified] Chronic Joint disorders and dislocations; trauma-related (1 source) Chondromalacia of patella; Translations: [Chondromalacia patellae, right knee] Onset: 06-05-2021 06-05-2021 Chronic Nonspecific chest pain (13 sources) Chest pain; Translations: [Chest pain, unspecified] 05-26-2019 Episodic Osteoarthritis (1 source) Osteoarthritis of acromioclavicular joint; Translations: [Primary osteoarthritis, right shoulder] Onset: 11-13-2017 11-13-2017 Chronic Residual codes; unclassified (13 sources) Cognitive perceptual pattern; Translations: [Unspecified symptoms and signs involving general sensations and perceptions] 11-04-2021 Episodic Residual codes; unclassified (2 sources) Unspecified symptoms and signs involving general sensations and perceptions; Translations: [Other symptoms involving nervous and musculoskeletal systems] Episodic Spondylosis; intervertebral disc disorders; other back problems (2 sources) Degeneration of lumbar intervertebral disc; Translations: [Other intervertebral disc degeneration, lumbar region] Onset: 10-29-2020 01-08-2021 Chronic Spondylosis; intervertebral disc disorders; other back problems (3 sources) Lumbar radiculopathy; Translations: [Radiculopathy, lumbar region] Onset: 10-29-2020 10-18-2021 Episodic Sprains and strains (1 source) Strain of neck muscle; Translations: [Strain of muscle, fascia and tendon at neck level, initial encounter] Onset: 10-18-2021 10-18-2021 Episodic Thyroid disorders (20 sources) Autoimmune thyroiditis; Translations: [Autoimmune thyroiditis] Onset: 06-03-2024 Chronic Past or Other Problems Problem Classification Problem [...] left elbow] Onset: 08-07-2020 08-07-2020 Episodic Other non-traumatic joint disorders (1 source) Pain in left knee; Translations: [Pain in left knee] Onset: 04-08-2024 Episodic Other skin disorders (1 source) Localized [...] Results Test Name Value Interpretation Reference Range Facility Calculated very low density lipoprotein (VLDL) cholesterol measurementOrdered By: Asael Pinedo on 02-28-2025 Calculated very low density lipoprotein (VLDL) cholesterol measurement 26 mg/dL 5-40 [facility] Free T3on 02-28-2025 Free T3 [Mass/Vol] 3.1 pg/mL Normal 2.18-3.98 [facility] Comment on above: Order Comment: N Performed By: #### L 500.4100, L501.9520, L506.0400, L501.21581 #### [facility] Laboratory [address] [place], [place], [id number] Free D1Rldkytr By: Asael pan on 02-28-2025 Free T3 [Mass/Vol] 3.1 pg/mL 2.18-3.98 [facility] LDL calc ser/plasOrdered By: Asael Pinedo on 02-28-2025 Cholesterol in LDL [Mass/Vol] 75 mg/dL [facility] Comment on above: Prjialpnum=570-536 m g/dL & Higher Vzmc=232 mg/dL or greater Lipid Profileon 02-28-2025 CHOL:HDL 4.17 Normal [facility] Comment on above: Performed By: #### L 500.4100, L501.9520, L506.0400, L501.95833 #### [facility] [address] [place], [place], [id number] Cholesterol [Mass/Vol] 133 mg/dL Normal <=200 [facility] Comment on above: Result Comment: Chol esterol level, Desirable <200 mg/dL Borderline high cholesterol 200-239 mg/dL High cholesterol >=240 mg/dL Recommendations of the NCEP Adult Treatment Panel for the following risk-cutoff thresholds for the [place] population. Performed By: #### L 500.4100, L501.9520, L506.0400, L501.88203 #### [facility] [address] [place], [address] Cholesterol in HDL [Mass/Vol] 32 mg/dL Low [facility] Comment on above: Result Comment: Alysia onal Cholesterol Education Program (NCEP) guidelines: <40 mg/dL: Low HDL-cholesterol (major risk factor for CHD) >= 60 mg/dL: High HDL-cholesterol (negative risk factor for CHD) HDL-cholesterol is affected by a number of factors, e.g. smoking, exercise, hormones, sex and age. Performed By: #### L 500.4100, L501.9520, L506.0400, L501.73479 #### [facility] [address] [place], [address] Cholesterol in LDL [Mass/Vol] 75 mg/dL Normal [facility] Comment on above: Result Comment: Bord aaxzaj=443-798 mg/dL Higher Ustn=364 mg/dL or greater Performed By: #### L 500.4100, L501.9520, L506.0400, L501.23732 #### [facility] [address] [place], [address] Cholesterol in VLDL [Mass/Vol] 26 mg/dL Normal 5-40 [facility] Comment on above: Performed By: #### L 500.4100, L501.9520, L506.0400, L501.70044 #### [facility] [address] [place], [address] Triglyceride [Mass/Vol] 132 mg/dL Normal [facility] Comment on above: Result Comment: The drugs N-Acetylcysteine and Metamizole may falsely depress this assay. Normal range: <150 mg/dL Borderline High: 150-199 mg/dL High: 200-499 mg/dL Very High: >500 mg/dL Performed By: #### L 500.4100, L501.9520, L506.0400, L501.67406 #### [facility] [address] [place], [address] Screening total cholesterol/ high density lipoprotein (HDL) cholesterol ratioOrdered By: Asael Pinedo on 02-28-2025 Cholesterol.total/Choles terol in HDL [Mass ratio] 4.17 {ratio} [facility] Serum or plasma cholesterol in HDL measurement (mass/volume)Ordered By: Asael Pinedo on 02-28-2025 Cholesterol in HDL [Mass/Vol] 32 mg/dL Low >40 [facility] Comment on above: National Cholesterol Education Program (NCEP) guidelines:<40 mg/dL: Low HDL-cholesterol (major risk factor for CHD)>= 60 mg/dL: High HDL-cholesterol (negative risk factor for CHD)HDL-cholesterol is affected by a number of factors, e.g. smoking, exercise, hormones, sex and age. Serum or plasma cholesterol measurement (mass/volume)Ordered By: Asael Pinedo on 02-28-2025 Cholesterol [Mass/Vol] 133 mg/dL <201 [facility] Comment on above: Cholesterol level, D esirable <200 mg/dLBorderline high cholesterol 200-239 mg/dLHigh cholesterol >=240 mg/dLRecommendations of the NCEP Adult Treatment Panel for the following risk-cutoff thresholds for the [place] population. T4 Free Directon 02-28-2025 T4 FREE DIRECT 1.50 ng/dL High 0.76-1.46 [facility] Comment on above: Order Comment: N Performed By: #### L 500.4100, L501.9520, L506.0400, L501.55979 #### [facility] [address] [place], [address] T4 freeOrdered By: Asael pan on 02-28-2025 Free T4 [Mass/Vol] 1.50 ng/dL High 0.76-1.46 [facility] TSH DL <= 0.005 mIU/L QnOrde red By: Asael Pinedo on 02-28-2025 TSH Qn 2.010 uIU/mL 0.300-4.200 [facility] Thyroid Stim Hormone (TSH)on 02-28-2025 TSH 2.010 uIU/mL Normal 0.300-4.200 [facility] Comment on above: Performed By: #### L 500.4100, L501.9520, L506.0400, L501.54406 #### [facility] [address] [place], [address] Triglycerides measurementOrd ered By: Asael Pinedo on 02-28-2025 Triglyceride [Mass/Vol] 132 mg/dL <199 [facility] Comment on above: The drugs N-Acetylcy steine and Metamizole may falsely depress this assay. Normal range: <150 mg/dLBorderline High: 150-199 mg/dLHigh: 200-499 mg/dLVery High: >500 mg/dL Cerv Spine Obl/Flex/Ext Comp on 12-22-2024 Cerv Spine Obl/Flex/Ext Comp [facility] [address] [place], [place] [address] Cerv Spine Obl/Flex/Ext Comp MR#: [id number] Acct: [id number] Name: CHEKO SOTOMAYOR Rep #: [id number] : 1970 M 54 From: Erik Moss MD PCP: Dr. Asael Pinedo MD Status: REG CLI Study: Cerv Spine Obl/Flex/Ext Comp Date of Exam: Exam# [id number] Ordering Dr: Asael Pinedo MD PROCEDURE: CERV SPINE OBL/FLEX/EXT COMP 12/22/2024 REASON FOR EXAM: CERVICALGIA TECHNIQUE: Neutral, flexed and extended lateral views of the cervical spine. FINDINGS: Vertebrae: No fracture. disc spaces: Focal disc space narrowing and osteophyte formation at C6-C7 consistent with degenerative disc disease. Alignment: Disc space prosthesis at C5/C6 with anatomic alignment. No subluxation on the flexion or extension views to suggest instability. soft tissues: Unremarkable Other: RAD/Cerv Spine Obl/Flex/Ext Comp IMPRESSION: Disc space prosthesis at C5/C6 with anatomic alignment. Degenerative disc disease at C6-C7. No instability. Disclaimer: Reading Location: [facility] CC: Dr. Asael Pinedo MD Tail Ripper: Signed Normal [facility] Testosterone, Total / Freeon 11-09-2024 TESTOSTER,FREE TNP Normal . [facility] Comment on above: Order Comment: N Result Comment: Unab le to calculate result since non-numeric result obtained for component test. Performed By: #### L 501.9520, L506.0400, L501.72904 #### [facility] [address] [place], [address] TESTOSTER,TOTAL 233 ng/dL Low 264-916 [facility] Comment on above: Order Comment: N Result Comment: Adul t male reference interval is based on a population of healthy nonobese males (BMI <30) between 19 and 39 years old. xuan Madsen.al. JCEM 2017,102;4846-9248. PMID: [id number]. Performed By: #### L 501.9520, L506.0400, L501.94707 #### [facility] [address] [place], [address] TESTOSTERONE,%F TNP Normal . [facility] Comment on above: Order Comment: N Result Comment: Test not performed. Insufficient specimen to perform or complete analysis. CONTACTED ALICJA Turner AT YOUR FACILITY ON 11-09-2024 Performed By: #### L 501.9520, L506.0400, L501.93270 #### [facility] [address] [place], [address] Absolute neutrophil countOrd ered By: Asael Pinedo on 11-02-2024 Neutrophils (Bld) [#/Vol] 5.6 10*3/uL 2.0-7.7 [facility] Anion gap in Serum or Plasma Ordered By: Asael Pinedo on 11-02-2024 Anion gap [Moles/Vol] 14 mmol/L 5- [facility] BUN/creatinine ratioOrdered By: Asael Pinedo on 11-02-2024 Urea nitrogen/Creatinine [Mass ratio] 14.4 mg/mg 10-20 [facility] Basophil percentageOrdered B y: Asael Pinedo on 11-02-2024 Basophils/100 WBC (Bld) 1.0 % 0-1 [facility] Bilirubin, totalOrdered By: Asael Pinedo on 11-02-2024 Bilirubin [Mass/Vol] 0.26 mg/dL 0.00-1.30 [facility] CBC W/Diff, Automatedon Absolute Lymph 2.53 X10 3/uL Normal 0.83-4.51 [facility] Comment on above: Performed By: #### L 3100.5310, L501.9520, L501.24343, L100.0100, L506.0400, L500.4050, L500.4100 #### [facility] [address] [place], [address] Absolute Neut 5.6 X10 3/uL Normal 2.0-7.7 [facility] Comment on above: Performed By: #### L 3100.5310, L501.9520, L501.79331, L100.0100, L506.0400, L500.4050, L500.4100 #### [facility] [address] [place], [address] Basophils/100 WBC (Bld) 1.0 % Normal 0-1 [facility] Comment on above: Performed By: #### L 3100.5310, L501.9520, L501.71605, L100.0100, L506.0400, L500.4050, L500.4100 #### [facility] [address] [place], [address] Eosinophils/100 WBC (Bld) 1.6 % Normal 0-5 [facility] Comment on above: Performed By: #### L 3100.5310, L501.9520, L501.45178, L100.0100, L506.0400, L500.4050, L500.4100 #### [facility] [address] [place], [address] Erythrocyte distribution width (RBC) [Ratio] 12.0 % Normal 11.6-14.6 [facility] Comment on above: Performed By: #### L 3100.5310, L501.9520, L501.86395, L100.0100, L506.0400, L500.4050, L500.4100 #### [facility] [address] [place], [address] Hematocrit (Bld) [Volume fraction] 44.3 % Normal 40-54 [facility] Comment on above: Performed By: #### L 3100.5310, L501.9520, L501.96062, L100.0100, L506.0400, L500.4050, L500.4100 #### [facility] [address] [place], [address] Hemoglobin (Bld) [Mass/Vol] 15.4 g/dL Normal 13.0-16.5 [facility] Comment on above: Performed By: #### L 3100.5310, L501.9520, L501.31547, L100.0100, L506.0400, L500.4050, L500.4100 #### [facility] [address] [place], [address] IG% 0.300 Normal 0.0-0.9 [facility] Comment on above: Result Comment: IG% - Immature Granulocytes (promyelocytes, myelocytes and metamyelocytes) > 1% indicates that a LEFT SHIFT is Present. Performed By: #### L 3100.5310, L501.9520, L501.06594, L100.0100, L506.0400, L500.4050, L500.4100 #### [facility] [address] [place], [address] Lymphocytes/100 WBC (Bld) 28.0 % Normal 19-41 [facility] Comment on above: Performed By: #### L 3100.5310, L501.9520, L501.26599, L100.0100, L506.0400, L500.4050, L500.4100 #### [facility] [address] [place], [address] MCH (RBC) [Entitic mass] 29.7 pg Normal 27.0-32.0 [facility] Comment on above: Performed By: #### L 3100.5310, L501.9520, L501.51477, L100.0100, L506.0400, L500.4050, L500.4100 #### [facility] [address] [place], [address] MCHC (RBC) [Mass/Vol] 34.8 g/dL Normal 32-36 [facility] Comment on above: Performed By: #### L 3100.5310, L501.9520, L501.88765, L100.0100, L506.0400, L500.4050, L500.4100 #### [facility] [address] [place], [address] MCV (RBC) [Entitic vol] 85.4 fL Normal 80-94 [facility] Comment on above: Performed By: #### L 3100.5310, L501.9520, L501.76394, L100.0100, L506.0400, L500.4050, L500.4100 #### [facility] [address] [place], [address] Monocytes/100 WBC (Bld) 7.6 % Normal 0-10 [facility] Comment on above: Performed By: #### L 3100.5310, L501.9520, L501.22854, L100.0100, L506.0400, L500.4050, L500.4100 #### [facility] [address] [place], [address] Neutrophils/100 WBC (Bld) 61.5 % Normal 47-70 [facility] Comment on above: Performed By: #### L 3100.5310, L501.9520, L501.11485, L100.0100, L506.0400, L500.4050, L500.4100 #### [facility] [address] [place], [address] Nucleated RBC (Bld) [#/Vol] 0 10*3/uL Normal 0-5 [facility] Comment on above: Performed By: #### L 3100.5310, L501.9520, L501.09812, L100.0100, L506.0400, L500.4050, L500.4100 #### [facility] [address] [place], [address] Platelet mean volume (Bld) [Entitic vol] 9.1 fL Normal 6.2-12.0 [facility] Comment on above: Performed By: #### L 3100.5310, L501.9520, L501.91303, L100.0100, L506.0400, L500.4050, L500.4100 #### [facility] [address] [place], [address] Platelets (Bld) [#/Vol] 346 10*3/uL Normal 150-450 [facility] Comment on above: Performed By: #### L 3100.5310, L501.9520, L501.05590, L100.0100, L506.0400, L500.4050, L500.4100 #### [facility] [address] [place] [place], [address] RBC (Bld) [#/Vol] 5.19 10*6/uL Normal 4.6-6.2 [facility] Comment on above: Performed By: #### L 3100.5310, L501.9520, L501.30966, L100.0100, L506.0400, L500.4050, L500.4100 #### [facility] [address] [place], [place], [id number] RDW SD 37.0 fl Normal 35.1-43.9 [facility] Comment on above: Performed By: #### L 3100.5310, L501.9520, L501.69092, L100.0100, L506.0400, L500.4050, L500.4100 #### [facility] [address] [place], [address] WBC (Bld) [#/Vol] 9.0 10*3/uL Normal 4.4-11.0 [facility] Comment on above: Performed By: #### L 3100.5310, L501.9520, L501.32362, L100.0100, L506.0400, L500.4050, L500.4100 #### [facility] [address] [place], [address] Calculated very low density lipoprotein (VLDL) cholesterol measurementOrdered By: Asael Pinedo on 11-02-2024 VLDL Cholesterol 55 mg/dL High 5-40 [facility] Carbon dioxide, total [Moles /volume] in Central venous bloodOrdered By: Asael Pinedo on 11-02-2024 CO2 [Moles/Vol] 20.9 mmol/L Low 21.0-32.0 [facility] Chloride assayOrdered By: Mark Pinedo on 11-02-2024 Chloride [Moles/Vol] 101 mmol/L 98-108 [facility] Comprehensive Metabolic Prof ilon 11-02-2024 Albumin [Mass/Vol] 4.3 g/dL Normal 3.5-5.0 [facility] Comment on above: Performed By: #### L 3100.5310, L501.9520, L501.06939, L100.0100, L506.0400, L500.4050, L500.4100 #### [facility] [address] [place], [address] Albumin/Globulin [Mass ratio] 1.5 {ratio} Normal 0.9-2.4 [facility] Comment on above: Performed By: #### L 3100.5310, L501.9520, L501.77805, L100.0100, L506.0400, L500.4050, L500.4100 #### [facility] [address] [place], [address] ALK PHOS 68 U/L Normal 40-129 [facility] Comment on above: Performed By: #### L 3100.5310, L501.9520, L501.56186, L100.0100, L506.0400, L500.4050, L500.4100 #### [facility] [address] [place], [address] ALT [Catalytic activity/Vol] 36 U/L Normal <=46 [facility] Comment on above: Performed By: #### L 3100.5310, L501.9520, L501.65500, L100.0100, L506.0400, L500.4050, L500.4100 #### [facility] [address] [place], [address] AST [Catalytic activity/Vol] 24 U/L Normal <=37 [facility] Comment on above: Performed By: #### L 3100.5310, L501.9520, L501.63244, L100.0100, L506.0400, L500.4050, L500.4100 #### [facility] [address] [place], [address] Bilirubin [Mass/Vol] 0.26 mg/dL Normal 0.00-1.30 [facility] Comment on above: Performed By: #### L 3100.5310, L501.9520, L501.72875, L100.0100, L506.0400, L500.4050, L500.4100 #### [facility] [address] [place], [address] BUN/CRE 14.4 RATIO Normal 10-20 [facility] Comment on above: Performed By: #### L 3100.5310, L501.9520, L501.02801, L100.0100, L506.0400, L500.4050, L500.4100 #### [facility] [address] [place], [address] Calcium [Mass/Vol] 9.4 mg/dL Normal 7.6-11.0 [facility] Comment on above: Performed By: #### L 3100.5310, L501.9520, L501.57970, L100.0100, L506.0400, L500.4050, L500.4100 #### [facility] [address] [place], [address] Chloride [Moles/Vol] 101 mmol/L Normal 98-108 [facility] Comment on above: Performed By: #### L 3100.5310, L501.9520, L501.07573, L100.0100, L506.0400, L500.4050, L500.4100 #### [facility] [address] [place], [address] CO2 [Moles/Vol] 20.9 mmol/L Low 21.0-32.0 [facility] Comment on above: Performed By: #### L 3100.5310, L501.9520, L501.73712, L100.0100, L506.0400, L500.4050, L500.4100 #### [facility] [address] [place], [address] Creatinine [Mass/Vol] 1.24 mg/dL High 0.70-1.20 [facility] Comment on above: Performed By: #### L 3100.5310, L501.9520, L501.35808, L100.0100, L506.0400, L500.4050, L500.4100 #### [facility] [address] [place], [address] GAP 14 Normal 5-15 [facility] Comment on above: Performed By: #### L 3100.5310, L501.9520, L501.99824, L100.0100, L506.0400, L500.4050, L500.4100 #### [facility] [address] [place], [address] GFR/1.73 sq M.predicted among non-blacks MDRD (S/P/Bld) [Vol rate/Area] 69 mL/min/{1.73_m2} Normal >60 [facility] Comment on above: Result Comment: mL/m in/1.73m2 CKD-EPI Creatinine Equation (2020) Performed By: #### L 3100.5310, L501.9520, L501.51776, L100.0100, L506.0400, L500.4050, L500.4100 #### [facility] [address] [place], [place], [id number] (959) Globulin (S) [Mass/Vol] 2.9 g/dL Normal 2.2-4.2 [facility] Comment on above: Performed By: #### L 3100.5310, L501.9520, L501.78744, L100.0100, L506.0400, L500.4050, L500.4100 #### [facility] [address] [place], [address] Glucose [Mass/Vol] 93 mg/dL Normal 70-99 [facility] Comment on above: Performed By: #### L 3100.5310, L501.9520, L501.68436, L100.0100, L506.0400, L500.4050, L500.4100 #### [facility] [address] [place], [address] Potassium [Moles/Vol] 4.1 mmol/L Normal 3.3-5.1 [facility] Comment on above: Performed By: #### L 3100.5310, L501.9520, L501.56324, L100.0100, L506.0400, L500.4050, L500.4100 #### [facility] [address] [place], [address] Sodium [Moles/Vol] 136 mmol/L Normal 133-145 [facility] Comment on above: Performed By: #### L 3100.5310, L501.9520, L501.41577, L100.0100, L506.0400, L500.4050, L500.4100 #### [facility] [address] [place], [address] T PROT 7.2 g/dL Normal 5.9-8.4 [facility] Comment on above: Performed By: #### L 3100.5310, L501.9520, L501.95355, L100.0100, L506.0400, L500.4050, L500.4100 #### [facility] [address] [place], [address] Urea nitrogen [Mass/Vol] 18 mg/dL Normal 4-19 [facility] Comment on above: Performed By: #### L 3100.5310, L501.9520, L501.25087, L100.0100, L506.0400, L500.4050, L500.4100 #### [facility] [address] [place], [address] Eosinophil percentageOrdered By: Asael Pinedo on 11-02-2024 Eosinophils/100 WBC (Bld) 1.6 % 0-5 [facility] Erythrocyte distribution wid th ratioOrdered By: Asael Pinedo on 11-02-2024 Erythrocyte distribution width (RBC) [Ratio] 12.0 % 11.6-14.6 [facility] Erythrocyte distribution wid th standard deviationOrdered By: Asael Pinedo on 11-02-2024 Erythrocyte distribution width (RBC) [Entitic vol] 37.0 fL 35.1-43.9 [facility] Free T3on 11-02-2024 Free T3 [Mass/Vol] 2.9 pg/mL Normal 2.18-3.98 [facility] Comment on above: Order Comment: N Performed By: #### L 501.9520, L506.0400, L501.47421 #### [facility] [address] [place], [place] [address], [place], [address] Free N2Yuvpirg By: Asael pan on 11-02-2024 Free Triiodothyronine (T3) pg/dL 2.9 pg/mL 2.18-3.98 [facility] GFR/1.73 sq M.predicted foster g non-blacks MDRD (S/P/Bld) [Vol rate/Area]Ordered By: Asael Pinedo on 11-02-2024 Estimated GFR (MDRD) Non-Af Amer 69 >60 [facility] Comment on above: mL/min/1.73m2 CKD-EP I Creatinine Equation (2020) Hematocrit Auto (Bld) [Volum e fraction]Ordered By: Asael Pinedo on 11-02-2024 Hematocrit (Bld) [Volume fraction] 44.3 % 40-54 [facility] Hemoglobin measurementOrdere d By: Asael Pinedo on 11-02-2024 Hemoglobin (Bld) [Mass/Vol] 15.4 g/dL 13.0-16.5 [facility] Immature granulocytes/100 WB C Auto (Bld)Ordered By: Asael Pinedo on 11-02-2024 Immature granulocytes/100 WBC (Bld) 0.300 % 0.0-0.9 [facility] Comment on above: IG% - Immature Granu locytes (promyelocytes, myelocytes and metamyelocytes) > 1% indicates that a LEFT SHIFT is Present. LDL calc ser/plasOrdered By: Asael Pinedo on 11-02-2024 LDL Cholesterol, Calculated 141 mg/dL [facility] Comment on above: Vsygfnopom=976-203 m g/dL & Higher Pnzg=577 mg/dL or greater Laboratory - Chemistry and C hemistry - challengeOrdered By: Asael Pinedo on 11-02-2024 AST [Catalytic activity/Vol] 24 U/L <38 [facility] Lipid Profileon 11-02-2024 CHOL:HDL 6.86 Normal [facility] Comment on above: Performed By: #### L 501.9520, L506.0400, L501.47292 #### [facility] [address] [place], [address] Cholesterol [Mass/Vol] 229 mg/dL High <=200 [facility] Comment on above: Result Comment: Chol esterol level, Desirable <200 mg/dL Borderline high cholesterol 200-239 mg/dL High cholesterol >=240 mg/dL Recommendations of the NCEP Adult Treatment Panel for the following risk-cutoff thresholds for the [place] population. Performed By: #### L 501.9520, L506.0400, L501.21108 #### [facility] [address] [place], [address] Cholesterol in HDL [Mass/Vol] 33 mg/dL Low [facility] Comment on above: Result Comment: Alysia onal Cholesterol Education Program (NCEP) guidelines: <40 mg/dL: Low HDL-cholesterol (major risk factor for CHD) >= 60 mg/dL: High HDL-cholesterol (negative risk factor for CHD) HDL-cholesterol is affected by a number of factors, e.g. smoking, exercise, hormones, sex and age. Performed By: #### L 501.9520, L506.0400, L501.81351 #### [facility] [address] [place], [address] Cholesterol in LDL [Mass/Vol] 141 mg/dL Normal [facility] Comment on above: Result Comment: Bord ssbqmf=435-543 mg/dL Higher Ferk=109 mg/dL or greater Performed By: #### L 501.9520, L506.0400, L501.72658 #### [facility] [address] [place] [place], [address] Cholesterol in VLDL [Mass/Vol] 55 mg/dL High 5-40 [facility] Comment on above: Performed By: #### L 501.9520, L506.0400, L501.80172 #### [facility] [address] [place], [address] Triglyceride [Mass/Vol] 274 mg/dL High [facility] Comment on above: Result Comment: The drugs N-Acetylcysteine and Metamizole may falsely depress this assay. Normal range: <150 mg/dL Borderline High: 150-199 mg/dL High: 200-499 mg/dL Very High: >500 mg/dL Performed By: #### L 501.9520, L506.0400, L501.39709 #### [facility] [address] [place], [address] Lymphocytes Auto (Unsp spec) [#/Vol]Ordered By: Asael Pinedo on 11-02-2024 Lymphocytes (Bld) [#/Vol] 2.53 10*3/uL 0.83-4.51 [facility] Lymphocytes/100 WBC Auto (Un sp spec)Ordered By: Asael Pinedo on 11-02-2024 Lymphocytes/100 WBC (Bld) 28.0 % 19-41 [facility] MCV (mean corpuscular volume ) determinationOrdered By: Asael Pinedo on 11-02-2024 MCV (RBC) [Entitic vol] 85.4 fL 80-94 [facility] Mean corpuscular hemoglobin (MCH) determinationOrdered By: Asael Pinedo on 11-02-2024 MCH (RBC) [Entitic mass] 29.7 pg 27.0-32.0 [facility] Mean corpuscular hemoglobin concentration (MCHC) determinationOrdered By: Asael Pinedo on 11-02-2024 MCHC (RBC) [Mass/Vol] 34.8 g/dL 32-36 [facility] Mean platelet volume determi nationOrdered By: Asael Pinedo on 11-02-2024 Platelet mean volume (Bld) [Entitic vol] 9.1 fL 6.2-12.0 [facility] Monocyte percentageOrdered B y: Asael Pinedo on 11-02-2024 Monocytes/100 WBC (Bld) 7.6 % 0-10 [facility] Neutrophil percentageOrdered By: Asael Pinedo on 11-02-2024 Neutrophils/100 WBC (Bld) 61.5 % 47-70 [facility] Nucleated red blood cell per centageOrdered By: Asael Pinedo on 11-02-2024 Nucleated RBC/100 WBC (Bld) [Ratio] 0 % 0-5 [facility] Platelet countOrdered By: Mark Pinedo on 11-02-2024 Platelets (Bld) [#/Vol] 346 10*3/uL 150-450 [facility] Potassium (Unsp spec) [Mass/ Vol]Ordered By: Asael Pinedo on 11-02-2024 Potassium [Moles/Vol] 4.1 mmol/L 3.3-5.1 [facility] RBC Auto (Bld) [#/Vol]Ordere d By: Asael Pinedo on 11-02-2024 RBC (Bld) [#/Vol] 5.19 10*6/uL 4.6-6.2 [facility] Screening total cholesterol/ high density lipoprotein (HDL) cholesterol ratioOrdered By: Asael Pinedo on 11-02-2024 Cholesterol.total/Choles terol in HDL [Mass ratio] 6.86 {ratio} [facility] Serum creatinine measurement (mass/volume)Ordered By: Asael Pinedo on 11-02-2024 Creatinine [Mass/Vol] 1.24 mg/dL High 0.70-1.20 [facility] Serum globulin measurementOr dered By: Asael Pinedo on 11-02-2024 Globulin (S) [Mass/Vol] 2.9 g/dL 2.2-4.2 [facility] Serum glucose measurement (m ass/volume)Ordered By: Asael Pinedo on 11-02-2024 Glucose [Mass/Vol] 93 mg/dL 70-99 [facility] Serum or plasma alanine taylor otransferase (ALT) measurementOrdered By: Asael Pinedo on 11-02-2024 ALT [Catalytic activity/Vol] 36 U/L <47 [facility] Serum or plasma albumin thaddeus urement (mass/volume)Ordered By: Asael Pinedo on 11-02-2024 Albumin [Mass/Vol] 4.3 g/dL 3.5-5.0 [facility] Serum or plasma albumin/glob ulin mass ratioOrdered By: Asael Pinedo on 11-02-2024 Albumin/Globulin [Mass ratio] 1.5 {ratio} 0.9-2.4 [facility] Serum or plasma alkaline johanny sphatase measurementOrdered By: Asael Pinedo on 11-02-2024 ALP [Catalytic activity/Vol] 68 U/L 40-129 [facility] Serum or plasma calcium thaddeus urement (mass/volume)Ordered By: Asael Pinedo on 11-02-2024 Calcium [Mass/Vol] 9.4 mg/dL 7.6-11.0 [facility] Serum or plasma cholesterol in HDL measurement (mass/volume)Ordered By: Asael Pinedo on 11-02-2024 Cholesterol in HDL [Mass/Vol] 33 mg/dL Low >40 [facility] Comment on above: National Cholesterol Education Program (NCEP) guidelines:<40 mg/dL: Low HDL-cholesterol (major risk factor for CHD)>= 60 mg/dL: High HDL-cholesterol (negative risk factor for CHD)HDL-cholesterol is affected by a number of factors, e.g. smoking, exercise, hormones, sex and age. Serum or plasma cholesterol measurement (mass/volume)Ordered By: Asael Pinedo on 11-02-2024 Cholesterol [Mass/Vol] 229 mg/dL High <201 [facility] Comment on above: Cholesterol level, D esirable <200 mg/dLBorderline high cholesterol 200-239 mg/dLHigh cholesterol >=240 mg/dLRecommendations of the NCEP Adult Treatment Panel for the following risk-cutoff thresholds for the [place] population. Serum or plasma urea nitroge n measurement (mass/volume)Ordered By: Asael Pinedo on 11-02-2024 Urea nitrogen [Mass/Vol] 18 mg/dL 4-19 [facility] Sodium levelOrdered By: Asael Pinedo on 11-02-2024 Sodium [Moles/Vol] 136 mmol/L 133-145 [facility] T4 Free Directon 11-02-2024 T4 FREE DIRECT 1.40 ng/dL Normal 0.76-1.46 [facility] Comment on above: Order Comment: N Performed By: #### L 501.9520, L506.0400, L501.30676 #### [facility] [place], [address] T4 freeOrdered By: Asael pan on 11-02-2024 Free T4 [Mass/Vol] 1.40 ng/dL 0.76-1.46 [facility] TSH DL <= 0.005 mIU/L QnOrde red By: Asael Pinedo on 11-02-2024 Thyroid Stimulating Hormone (TSH) 4.550 uIU/mL High 0.300-4.200 [facility] Testosterone Free [Mass/Vol] Ordered By: Asael Pinedo on 11-02-2024 [facility] Comment on above: Test not performedUn able to calculate result since non-numeric resultobtained for component test. Testosterone Free/Testostero ne.total [Mass fraction]Ordered By: Asael Pinedo on 11-02-2024 Percent Free Testosterone [facility] Comment on above: Test not performedTe st not performed. Insufficient specimen to perform orcomplete analysis.CONTACTED ALICJA Turner AT YOUR FACILITY ON 11-09-2024 Testosterone, totalOrdered B y: Asael Pinedo on 11-02-2024 Testosterone [Mass/Vol] 233 ng/dL Low 264-916 [facility] Comment on above: Adult male reference interval is based on a population ofhealthy nonobese males (BMI <30) between 19 and 39 yearsold. xuan Madsen.al. JCEM 2017,102;2138-8123. PMID:[id number]. Thyroid Stim Hormone (TSH)on 11-02-2024 TSH 4.550 uIU/mL High 0.300-4.200 [facility] Comment on above: Performed By: #### L 501.9520, L506.0400, L501.58575 #### [facility] [address] [place], [address] Total proteinOrdered By: Barbara Pinedo on 11-02-2024 Protein [Mass/Vol] 7.2 g/dL 5.9-8.4 [facility] Triglycerides measurementOrd ered By: Asael Pinedo on 11-02-2024 Triglyceride [Mass/Vol] 274 mg/dL High <199 [facility] Comment on above: The drugs N-Acetylcy steine and Metamizole may falsely depress this assay. Normal range: <150 mg/dLBorderline High: 150-199 mg/dLHigh: 200-499 mg/dLVery High: >500 mg/dL White blood cell (WBC) count Ordered By: Asael Pinedo on 11-02-2024 WBC (Bld) [#/Vol] 9.0 10*3/uL 4.4-11.0 [facility] Endocrinology Visit Reporton 06-03-2024 Endocrinology Visit Report [facility] [address] [facility] [place] [address] OFFICE VISIT Date of Service: 06/03/24 MR#: [id number] Acct: [id number] Name: CHEKO SOTOMAYOR Rep #: [id number] : 1970 Provider: Briana Armando Age/Sex: 54/M Location[place] [facility] [place]: Signed Intake Vital Signs 05/26/23 14:53 06/03/24 15:40 Height 5 ft 10 in 5 ft 10 in Weight: 193 lb 6 oz BMI 27.7 BP 144/99 H Blood Pressure Location Lt brachial Position Sitting Pulse 78 Pulse Source Monitor Pulse Oximetry (%) 97 Intake Visit Reasons: 1 Y FU Chief Complaint: Hypothroidism Is patient in pain?: Yes Allergies Penicillins Allergy (Verified 05/26/23 14:56) Anaphylaxis rosuvastatin (From Crestor) Adverse Reaction (Severe, Verified 05/26/23 14:56) Vomiting Medications ???Medication ???Instructions ???Recorded ???Confirmed ???Type levothyroxine 125 mcg tablet 125 mcg PO DAILY #90 tabs 06/03/24 06/03/24 Rx tizanidine 2 mg capsule 2 mg PO Q8H PRN 06/03/24 06/03/24 History PFSH Medical History Thyrotoxicosis due to Graves' disease Autoimmune thyroiditis Surgical History Hx of neck surgery Family History Other Thyroid disorder Social History Smoking Status: Never smoker HPI HPI Chief Complaint: Hypothroidism Details: CHEKO SOTOMAYOR, is a 54 M who presents to the office today for follow up. He has hypothyroidism s/p MENG therapy for Grave's disease. He is now stable on his levothyroxine. He is feeling well. ROS Const Constitutional: Positive for fatigue and weight change ENT ENT: No dizziness/vertigo Cardio Cardiology: No chest pain at rest, chest pain with exertion, shortness of breath or palpitations Skin Skin: No wounds Endo Endocrine: Positive for fatigue and weight change Exam Const General: cooperative, healthy appearing, comfortable, no acute distress, well developed and not cushingoid Nutritional Appearance: well nourished Orientation: alert, awake and oriented x3 HENMT Head: normal to inspection Ears: hearing grossly normal bilaterally Nose: external nose normal Mouth: oral mucosae normal Eyes General: appearance normal, both eyes and all related structures Alignment and Position: alignment normal Periorbital: periorbital findings normal Eyelids: eyelids normal Conjunctivae: conjunctivae normal Neck Neck: normal visual inspection Neck mass: No Thyroid: thyroid normal Lymphatic: no lymphadenopathy noted Chest Chest palpation inspection: normal inspection of the chest Resp Effort Inspection: normal respiratory effort, able to speak in complete sentences, symmetric chest movement, no audible wheezes and no cough Auscultation: Bilateral: Clear to Auscultation Cardio Rate: regular rate Rhythm: regular rhythm GI Inspection: normal to inspection Skin General: no rashes or lesions noted Neuro General: patient alert, patient awake and patient oriented x3 Cranial Nerves: CN's II-XI intact bilaterally Cognition: normal cognition Speech: speech normal Gait: normal gait Motor: muscle tone normal throughout Extrem General: no edema Psych Appearance: grossly normal Mental Status: mental status grossly normal Mood: congruent mood Affect: normal affect Speech and Movement: speech and movement normal Attitude: cooperative Thought Process: normal Thought Content: normal Judgment: judgment good Assessment and Plan Assessment and Plan (1) Hypothyroidism (acquired): Status: Chronic Plan: Take levothyroxine on an empty stomach with water at least four hours after eating. Then wait 30-60 minutes before consuming any other food or beverage, especially coffee. Separate levothyroxine from vitamins by at least 4 hours. Stop taking any biotin supplement 4 days prior to having labs drawn. Check levels. Call if symptoms. I have spent [23] minutes today reviewing labs, records and history. Time includes coordinating care, interpretation of tests, discussion with patient's other health care providers via telephone. This also includes time I spent with the patient for exam, treatment plan and education as well as documenting clinical information. Orders: Orders T4 Free Direct 06/03/24 E03.9 - Hypothyroidism, unspecified Thyroid Stim Hormone (TSH) 06/03/24 E03.9 - Hypothyroidism, unspecified Medications: Refilled levothyroxine 125 mcg PO DAILY 90 tabs 3RF Coding Level of Care Code Off vis,est,level 3 Diagnoses Hypothyroidism (acquired) E03.9 06/14/24 0755 Date (more content not included)... Normal [facility] Free T3on 03-18-2024 Free T3 [Mass/Vol] 2.2 pg/mL Normal 2.18-3.98 [facility] Comment on above: Performed By: #### L 501.9520, L506.0400, L501.19886 #### [facility] [address] [place], [address] Knee 4 or More Viewson 03-18 Knee 4 or More Views [facility] [address] [place], [place] [address] Knee 4 or More Views MR#: [id number] Acct: [id number] Name: CHEKO SOTOMAYOR Rep #: [id number] : 1970 M 54 From: Erik Moss MD PCP: Dr. Asael Pinedo MD Status: REG CLI Study: Knee 4 or More Views Date of Exam: 03/18/24 Exam# [id number] Ordering Dr: Asael Pinedo MD [id number] STUDY: X-RAY - LEFT KNEE REASON FOR EXAM: Male, 54 years old. KNEE PAIN TECHNIQUE: 4 view(s) of the knee. COMPARISON: None. FINDINGS: Normal visualized distal femur. Normal visualized proximal tibia and fibula. Normal proximal tibiofibular articulation. Normal medial femorotibial compartment. Normal lateral femorotibial compartment. Normal patellofemoral articulation. The soft tissue structures are unremarkable. RAD/Knee 4 or More Views IMPRESSION: Normal x-ray examination of the knee. Electronically Signed: Erik Moss MD at 16:24 EDT , CC: Dr. Asael Pinedo MD Tail Ripper: Signed Normal [facility] T4 Free Directon 03-18-2024 T4 FREE DIRECT 1.19 ng/dL Normal 0.76-1.46 [facility] Comment on above: Performed By: #### L 501.9520, L506.0400, L501.52274 #### [facility] [address] [place], [place], [id number] Thyroid Stim Hormone (TSH)on 03-18-2024 TSH 2.92 uIU/mL Normal 0.358-3.74 [facility] Comment on above: Performed By: #### L 501.9520, L506.0400, L501.11696 #### [facility] [address] [place], [place], [address] Laboratory - Chemistry and C hemistry - challengeOrdered By: Perez Black on 04-01-2023 Free T4 [Mass/Vol] 1.16 ng/dL 0.76-1.46 [facility] No Panel InformationOrdered By: Perez Black on 04-01-2023 Thyroid Stimulating Hormone (TSH) 8.93 uIU/mL 0.358-3.74 [facility] Laboratory - Chemistry and C hemistry - challengeOrdered By: Luna Melissa on 01-27-2023 Free T4 [Mass/Vol] 1.06 ng/dL 0.76-1.46 [facility] No Panel InformationOrdered By: Luna Melissa on 01-27-2023 Thyroid Stimulating Hormone (TSH) 23.00 uIU/mL 0.358-3.74 [facility] Laboratory - Chemistry and C hemistry - challengeOrdered By: Dr. Black on 11-20-2022 Free T4 [Mass/Vol] 0.96 ng/dL 0.76-1.46 [facility] No Panel InformationOrdered By: Dr. Black on 11-20-2022 Free Triiodothyronine (T3) pg/dL 2.1 pg/mL 2.18-3.98 [facility] Thyroid Stimulating Hormone (TSH) 39.10 uIU/mL 0.358-3.74 [facility] Laboratory - Chemistry and C hemistry - challengeOrdered By: Dr. Black on 08-26-2022 Free T4 [Mass/Vol] 0.23 ng/dL 0.76-1.46 [facility] No Panel InformationOrdered By: Dr. Black on 08-26-2022 Free Triiodothyronine (T3) pg/dL 0.9 pg/mL 2.18-3.98 [facility] Thyroid Stimulating Hormone (TSH) 78.80 uIU/mL 0.358-3.74 [facility] Laboratory - Chemistry and C hemistry - challengeon 06-26-2022 Free T4 [Mass/Vol] 1.96 ng/dL 0.76-1.46 [facility] Work Phone: No Panel Informationon 06-26 Free Triiodothyronine (T3) pg/dL 6.9 pg/mL 2.18-3.98 [facility] Work Phone: Thyroid Stimulating Hormone (TSH) < 0.01 uIU/mL 0.358-3.74 [facility] Work Phone: Laboratory - Chemistry and C hemistry - challengeon 06-03-2022 Free T4 [Mass/Vol] 1.70 ng/dL 0.76-1.46 [facility] Work Phone: No Panel Informationon 06-03 Free Triiodothyronine (T3) pg/dL 6.5 pg/mL 2.18-3.98 [facility] Work Phone: Thyroid Stimulating Hormone (TSH) < 0.01 uIU/mL 0.358-3.74 [facility] Work Phone: Absolute lymphocyte counton 04-15-2022 Lymphocytes Auto (Unsp spec) [#/Vol] 2.15 10*3/uL 0.83-4.51 [facility] Work Phone: Basophil percentageon 2021 Basophils/100 WBC (Bld) 0.7 % 0-1 [facility] Work Phone: Bilirubin [Mass/Vol] 0.50 mg/dL 0.20-1.00 [facility] Work Phone: Comment on above: For patients on eltr ombopag therapy, use of Dimension [place] TBIL is not recommended. Chloride [Moles/Vol] 108 mmol/L 98-107 [facility] Work Phone: Eosinophils/100 WBC (Bld) 0.8 % 0-5 [facility] Work Phone: Glucose [Mass/Vol] 87 mg/dL 74-106 [facility] Work Phone: Neutrophils (Bld) [#/Vol] 4.7 10*3/uL 2.0-7.7 [facility] Work Phone: Neutrophils/100 WBC (Bld) 63.7 % 47-70 [facility] Work Phone: Potassium [Moles/Vol] 4.0 mmol/L 3.5-5.1 [facility] Work Phone: Protein [Mass/Vol] 7.2 g/dL 6.4-8.2 [facility] Work Phone: Sodium [Moles/Vol] 139 mmol/L 136-145 [facility] Work Phone: WBC (Bld) [#/Vol] 7.4 10*3/uL 4.4-11.0 [facility] Work Phone: Blood erythrocytes count (nu mber/volume)on 04-15-2022 RBC (Bld) [#/Vol] 5.05 10*6/uL 4.6-6.2 [facility]: Blood hemoglobin measurement (mass/volume)on 04-15-2022 Hemoglobin (Bld) [Mass/Vol] 15.1 g/dL 13.0-16.5 [facility] Work Phone: Blood lymphocytes/100 leukoc yteson 04-15-2022 Lymphocytes/100 WBC (Bld) 29.2 % 19-41 [facility] Work Phone: Blood monocytes/100 leukocyt eson 04-15-2022 Monocytes/100 WBC (Bld) 5.3 % 0-10 [facility] Work Phone: Blood platelet mean volumeon 04-15-2022 Platelet mean volume (Bld) [Entitic vol] 9.1 fL 6.2-12.0 [facility] Work Phone: Determination of erythrocyte mean corpuscular volume (MCV)on 04-15-2022 MCV (RBC) [Entitic vol] 87.1 fL 80-94 [facility] Work Phone: Hematocrit Auto (Bld) [Volum e fraction]on 04-15-2022 Hematocrit (Bld) [Volume fraction] 44.0 % 40-54 [facility] Work Phone: Laboratory - Chemistry and C hemistry - challengeon 04-15-2022 ALP [Catalytic activity/Vol] 65 U/L 45-117 [facility] Work Phone: ALT [Catalytic activity/Vol] 43 U/L 16-61 [facility] Work Phone: CO2 [Moles/Vol] 26.0 mmol/L 21.0-32.0 [facility] Work Phone: Cobalamin (Vitamin B12) [Mass/Vol] 339 pg/mL 211-911 [facility] Work Phone: Free T4 [Mass/Vol] 0.97 ng/dL 0.76-1.46 [facility] Work Phone: Globulin (S) [Mass/Vol] 3.4 g/dL 2.2-4.2 [facility] Work Phone: Urea nitrogen/Creatinine [Mass ratio] 11.7 mg/mg 10-20 [facility] Work Phone: Laboratory - Hematology and Cell countson 04-15-2022 Erythrocyte distribution width (RBC) [Entitic vol] 38.7 fL 35.1-43.9 [facility] Work Phone: Erythrocyte distribution width (RBC) [Ratio] 12.2 % 11.6-14.6 [facility] Work Phone: Immature granulocytes/100 WBC (Bld) 0.300 % 0.0-0.9 [facility] Work Phone: Comment on above: IG% - Immature Granu locytes (promyelocytes, myelocytes and metamyelocytes) > 1% indicates that a LEFT SHIFT is Present. MCH (RBC) [Entitic mass] 29.9 pg 27.0-32.0 [facility] Work Phone: Nucleated RBC/100 WBC (Bld) [Ratio] 0 % 0-5 [facility] Work Phone: MCHC Auto (RBC) [Mass/Vol]on 04-15-2022 MCHC (RBC) [Mass/Vol] 34.3 g/dL 32-36 [facility] Work Phone: No Panel Informationon 04-15 Estimated GFR (MDRD) Amer 89 mL/min >60 [facility] Work Phone: Comment on above: GFR Calc Estimated GFR (MDRD) Non-Af Amer 74 mL/min >60 [facility] Work Phone: Comment on above: Non- GFR Calc Thyroid Stimulating Hormone (TSH) 0.14 uIU/mL 0.358-3.74 [facility] Work Phone: Platelets bldon 04-15-2022 Platelets (Bld) [#/Vol] 334 10*3/uL 150-450 [facility] Work Phone: Serum or plasma albumin thaddeus urement (mass/volume)on 04-15-2022 Albumin [Mass/Vol] 3.8 g/dL 3.2-5.0 [facility] Work Phone: Serum or plasma albumin/glob ulin mass ratioon 04-15-2022 Albumin/Globulin [Mass ratio] 1.1 {ratio} 0.9-2.4 [facility] Work Phone: Serum or plasma calcium thaddeus urement (mass/volume)on 04-15-2022 Calcium [Mass/Vol] 8.6 mg/dL 8.5-10.1 [facility] Work Phone: Serum or plasma creatinine m easurement (mass/volume)on 04-15-2022 Creatinine [Mass/Vol] 1.11 mg/dL 0.70-1.30 [facility] Work Phone: Comment on above: The validity of the calculated GFR & GFRAA in patients over 70 years has not been determined. Clinical correlation is essential. Serum or plasma urea nitroge n measurement (mass/volume)on 04-15-2022 Urea nitrogen [Mass/Vol] 13 mg/dL 7-18 [facility] Work Phone: Thin prep Papanicolaou smear with manual screeningon 04-15-2022 Thin prep Papanicolaou smear with manual screening 23 U/L 15-37 [facility] Work Phone: Thin prep Papanicolaou smear with manual screening 5 5-15 [facility] Work Phone: Laboratory - Chemistry and C hemistry - challengeon 03-20-2022 Free T4 [Mass/Vol] 0.90 ng/dL 0.76-1.46 [facility] Work Phone: No Panel Informationon 03-20 Thyroid Stimulating Hormone (TSH) 0.41 uIU/mL 0.358-3.74 [facility] Work Phone: Laboratory - Chemistry and C hemistry - challengeon 03-06-2022 Free T4 [Mass/Vol] 0.90 ng/dL 0.76-1.46 [facility] Work Phone: No Panel Informationon 03-06 Free Triiodothyronine (T3) pg/dL 2.5 pg/mL 2.18-3.98 [facility] Work Phone: Thyroid Stimulating Hormone (TSH) 0.06 uIU/mL 0.358-3.74 [facility] Work Phone: Serum or plasma thyroperoxid ase antibody assay (units/volume)on 03-06-2022 TPO Ab Qn 164 [IU]/mL 0-34 [facility] Work Phone: Comment on above: Performed at: [address] [id number] Director: Christiano Kimbrough PhD, Phone: [phone] Laboratory - Chemistry and C hemistry - challengeon 02-18-2022 Free T4 [Mass/Vol] 0.99 ng/dL 0.76-1.46 [facility] Work Phone: No Panel Informationon 02-18 Free Triiodothyronine (T3) pg/dL 3.0 pg/mL 2.18-3.98 [facility] Work Phone: Thyroid stimulating immunogl obulins detectionon 02-18-2022 Thyroid stimulating immunoglobulins Ql (S) 0.64 IU/L 0.00-0.55 [facility] Work Phone: Comment on above: Performed at: [address] [id number] Director: Peggy Lucia MD, Phone: [phone] Absolute lymphocyte counton 02-07-2022 Lymphocytes Auto (Unsp spec) [#/Vol] 1.96 10*3/uL 0.83-4.51 [facility] Work Phone: Basophil percentageon 2021 Basophils/100 WBC (Bld) 0.8 % 0-1 [facility] Work Phone: Cholesterol [Mass/Vol] 218 mg/dL <200 [facility] Work Phone: Comment on above: <200 mg/dL Desirable 200-240 mg/dL Borderline >240 mg/dL High Risk Eosinophils/100 WBC (Bld) 2.4 % 0-5 [facility] Work Phone: Neutrophils (Bld) [#/Vol] 3.9 10*3/uL 2.0-7.7 [facility] Work Phone: Neutrophils/100 WBC (Bld) 59.1 % 47-70 [facility] Work Phone: Testosterone [Mass/Vol] 302.95 ng/dL [facility] Work Phone: Comment on above: CENTRAL 90% REFERENC E RANGES MALE AGE <50 197.44 - 669.58 ng/dL MALE AGE > or = 50 187.72 - 684.19 ng/dL FEMALE AGE <50 8.38 - 35.01 ng/dL FEMALE AGE > or = 50 <7.00 - 35.92 ng/dL Effective as of 03/26/21 Triglyceride [Mass/Vol] 102 mg/dL <199 [facility] Work Phone: Comment on above: The drugs N-Acetylcy steine and Metamizole may falsely depress this assay.Serum Triglycerides Reference Interval Normal <150 mg/dL Borderline high 150 - 199 mg/dL High 200 - 499 mg/dL Very High > or = 500 mg/dL WBC (Bld) [#/Vol] 6.6 10*3/uL 4.4-11.0 [facility] Work Phone: Blood erythrocytes count (nu mber/volume)on 02-07-2022 RBC (Bld) [#/Vol] 5.42 10*6/uL 4.6-6.2 [facility] Work Phone: Blood hemoglobin measurement (mass/volume)on 02-07-2022 Hemoglobin (Bld) [Mass/Vol] 16.0 g/dL 13.0-16.5 [facility] Work Phone: Blood lymphocytes/100 leukoc yteson 02-07-2022 Lymphocytes/100 WBC (Bld) 29.7 % 19-41 [facility] Work Phone: Blood monocytes/100 leukocyt eson 02-07-2022 Monocytes/100 WBC (Bld) 7.7 % 0-10 [facility] Work Phone: Blood platelet mean volumeon 02-07-2022 Platelet mean volume (Bld) [Entitic vol] 8.8 fL 6.2-12.0 [facility] Work Phone: Determination of erythrocyte mean corpuscular volume (MCV)on 02-07-2022 MCV (RBC) [Entitic vol] 87.8 fL 80-94 [facility] Work Phone: Hematocrit Auto (Bld) [Volum e fraction]on 02-07-2022 Hematocrit (Bld) [Volume fraction] 47.6 % 40-54 [facility] Work Phone: Laboratory - Hematology and Cell countson 02-07-2022 Erythrocyte distribution width (RBC) [Entitic vol] 38.0 fL 35.1-43.9 [facility] Work Phone: Erythrocyte distribution width (RBC) [Ratio] 11.8 % 11.6-14.6 [facility] Work Phone: Immature granulocytes/100 WBC (Bld) 0.300 % 0.0-0.9 [facility] Work Phone: Comment on above: IG% - Immature Granu locytes (promyelocytes, myelocytes and metamyelocytes) > 1% indicates that a LEFT SHIFT is Present. MCH (RBC) [Entitic mass] 29.5 pg 27.0-32.0 [facility] Work Phone: Nucleated RBC/100 WBC (Bld) [Ratio] 0 % 0-5 [facility] Work Phone: MCHC Auto (RBC) [Mass/Vol]on 02-07-2022 MCHC (RBC) [Mass/Vol] 33.6 g/dL 32-36 [facility] Work Phone: No Panel Informationon 02-07 Thyroid Stimulating Hormone (TSH) 0.01 uIU/mL 0.358-3.74 [facility] Work Phone: Platelets bldon 02-07-2022 Platelets (Bld) [#/Vol] 393 10*3/uL 150-450 [facility] Work Phone: Serum or plasma cholesterol in HDL measurement (mass/volume)on 02-07-2022 Cholesterol in HDL [Mass/Vol] 41 mg/dL >40 [facility] Work Phone: Comment on above: The drugs N-Acetylcy steine and Metamizole may falsely depress this assay. Reference Range HDL <40 mg/dL Low HDL Cholesterol HDL >or= 60 mg/dL High HDL Cholesterol Serum or plasma cholesterol in VLDL measurement (mass/volume)on 02-07-2022 Cholesterol in VLDL [Mass/Vol] 20 mg/dL 5-40 [facility] Work Phone: Serum or plasma low density lipoprotein (LDL) cholesterol measurement (mass/volume)on 02-07-2022 Cholesterol in LDL [Mass/Vol] 157 mg/dL 0-130 [facility] Work Phone: Clinical Summary: Mehrdad goldsmith 12-10-2021 MC75 OP Visit Invalid Interpretation Code [facility] Work Phone: Office Visit: Postop - subse quent visit, Rm: 19on 12-10-2021 NEGATED: Highlighted rowxray history of the cervical spine on 10/18/2021 at [facility] Invalid Interpretation Code [facility] Work Phone: Absolute lymphocyte counton 11-04-2021 Lymphocytes Auto (Unsp spec) [#/Vol] 1.88 10*3/uL 0.83-4.51 [facility] Work Phone: Basophil percentageon 2021 Basophils/100 WBC (Bld) 0.6 % 0-1 [facility] Work Phone: Chloride [Moles/Vol] 109 mmol/L 98-107 [facility] Work Phone: Eosinophils/100 WBC (Bld) 1.2 % 0-5 [facility] Work Phone: Glucose [Mass/Vol] 100 mg/dL 74-106 [facility] Work Phone: Comment on above: Fasting Glucose resu lt from 100 to 125 mg/dL suggests IMPAIRED HOMEOSTASIS per A.D.A. criteria. Neutrophils (Bld) [#/Vol] 4.1 10*3/uL 2.0-7.7 [facility] Work Phone: Neutrophils/100 WBC (Bld) 62.0 % 47-70 [facility] Work Phone: Potassium [Moles/Vol] 4.0 mmol/L 3.5-5.1 [facility] Work [facility]: Sodium [Moles/Vol] 139 mmol/L 136-145 [facility] Work Phone: WBC (Bld) [#/Vol] 6.7 10*3/uL 4.4-11.0 [facility] Work Phone: Blood erythrocytes count (nu mber/volume)on 11-04-2021 RBC (Bld) [#/Vol] 5.08 10*6/uL 4.6-6.2 [facility] Work Phone: Blood hemoglobin measurement (mass/volume)on 11-04-2021 Hemoglobin (Bld) [Mass/Vol] 15.2 g/dL 13.0-16.5 [facility] Work Phone: Blood lymphocytes/100 leukoc yteson 11-04-2021 Lymphocytes/100 WBC (Bld) 28.3 % 19-41 [facility] Work Phone: Blood monocytes/100 leukocyt eson 11-04-2021 Monocytes/100 WBC (Bld) 7.4 % 0-10 [facility] Work Phone: Blood platelet mean volumeon 11-04-2021 Platelet mean volume (Bld) [Entitic vol] 8.7 fL 6.2-12.0 [facility] Work Phone: Determination of erythrocyte mean corpuscular volume (MCV)on 11-04-2021 MCV (RBC) [Entitic vol] 83.1 fL 80-94 [facility] Work Phone: Glucose Glucometer (BldC) [M ass/Vol]on 11-04-2021 Glucose [Mass/Vol] 102 mg/dL 74-106 [facility] Work Phone: Comment on above: MANAGEMENT OF PATIEN T CARE PER NURSING PROTOCOL Hematocrit Auto (Bld) [Volum e fraction]on 11-04-2021 Hematocrit (Bld) [Volume fraction] 42.2 % 40-54 [facility] Work Phone: INR in Blood by Coagulation assayon 11-04-2021 INR Coag (Bld) [Relative time] 1.1 {INR} [facility] Work Phone: Laboratory - Chemistry and C hemistry - challengeon 11-04-2021 CO2 [Moles/Vol] 27.0 mmol/L 21.0-32.0 [facility] Work Phone: Urea nitrogen/Creatinine [Mass ratio] 12.8 mg/mg 10-20 [facility] Work Phone: Laboratory - Coagulationon 0 11-04-2021 aPTT Coag (Bld) [Time] 28.8 s 24.1-36.2 [facility] Work Phone: PT Coag (PPP) [Time] 13.6 s 11.7-14.9 [facility]: Laboratory - Hematology and Cell countson 11-04-2021 Erythrocyte distribution width (RBC) [Entitic vol] 35.8 fL 35.1-43.9 [facility] Work Phone: Erythrocyte distribution width (RBC) [Ratio] 11.9 % 11.6-14.6 [facility] Work Phone: Immature granulocytes/100 WBC (Bld) 0.500 % 0.0-0.9 [facility] Work Phone: Comment on above: IG% - Immature Granu locytes (promyelocytes, myelocytes and metamyelocytes) > 1% indicates that a LEFT SHIFT is Present. MCH (RBC) [Entitic mass] 29.9 pg 27.0-32.0 [facility] Work Phone: Nucleated RBC/100 WBC (Bld) [Ratio] 0 % 0-5 [facility] Work Phone: MCHC Auto (RBC) [Mass/Vol]on 11-04-2021 MCHC (RBC) [Mass/Vol] 36.0 g/dL 32-36 [facility] Work Phone: No Panel Informationon 11-04 Thyroid Stimulating Hormone (TSH) < 0.01 uIU/mL 0.358-3.74 [facility] Work Phone: Troponin I High Sensitivity 6 pg/mL 3.0-78.0 [facility] Work Phone: Comment on above: Please Note: [place] t Units and Gender Specific Reference Ranges. For more information see Policy Stat Procedure [place] High Sensitivity Troponin (TNIH) and attachments. Estimated Creatinine Clearance Calc 77.12 ml/min [facility] Work Phone: Estimated GFR (MDRD) Amer 84 mL/min >60 [facility] Work Phone: Comment on above: GFR Calc Estimated GFR (MDRD) Non-Af Amer 70 mL/min >60 [facility] Work Phone: Comment on above: Non- GFR Calc Platelets bldon 11-04-2021 Platelets (Bld) [#/Vol] 282 10*3/uL 150-450 [facility] Work Phone: Serum or plasma calcium thaddeus urement (mass/volume)on 11-04-2021 Calcium [Mass/Vol] 9.0 mg/dL 8.5-10.1 [facility] Work Phone: Serum or plasma creatinine m easurement (mass/volume)on 11-04-2021 Creatinine [Mass/Vol] 1.17 mg/dL 0.70-1.30 [facility] Work Phone: Comment on above: The validity of the calculated GFR & GFRAA in patients over 70 years has not been determined. Clinical correlation is essential. Serum or plasma urea nitroge n measurement (mass/volume)on 11-04-2021 Urea nitrogen [Mass/Vol] 15 mg/dL 7-18 [facility] Work Phone: Thin prep Papanicolaou smear with manual screeningon 11-04-2021 Thin prep Papanicolaou smear with manual screening 3 5-15 [facility] Work Phone: Vital Signs Date Time Vital Sign Value Performing Clinician Facility 03-06-2022 13:04-0400 Body height 177.[address] Asael Pinedo Work Phone: [facility] Work Phone: 03-06-2022 13:04-0400 Body mass index (BMI) [Ratio] 26.4 kg/m2 Dr. Asael Pinedo Work Phone: [facility] Work Phone: 03-06-2022 13:04-0400 Body temperature 97.1 [degF] Dr. Asael Pinedo Work Phone: [facility] Work Phone: 03-06-2022 13:04-0400 Body weight 83.[address] Asael Pinedo Work Phone: [facility] Work Phone: 03-06-2022 13:04-0400 Diastolic blood pressure 70 mm[Hg] Dr. Asael Pinedo Work Phone: [facility] Work Phone: 03-06-2022 13:04-0400 Heart rate 78 /min Dr. Asael Pinedo Work Phone: [facility] Work Phone: 03-06-2022 13:04-0400 Respiratory rate 18 /min Dr. Asael Pinedo Work Phone: [facility] Work Phone: 03-06-2022 13:04-0400 SaO2% (BldA) [Mass fraction] 98 % Dr. Asael Pinedo Work Phone: [facility] Work Phone: 03-06-2022 13:04-0400 Systolic blood pressure 124 mm[Hg] Dr. Asael Pinedo Work Phone: [facility] Work Phone: 11-04-2021 16:51-0500 Body mass index (BMI) [Ratio] 26.2 kg/m2 Dr. Asael Pinedo Work Phone: [facility] Work Phone: 11-04-2021 16:27-0500 Body height 177.[address] Asael Pinedo Work Phone: [facility] Work Phone: 11-04-2021 16:27-0500 Body weight 82.[address] Asael Pinedo Work Phone: [facility] Work Phone: 11-04-2021 15:27-0500 SaO2% (BldA) [Mass fraction] 97 % Dr. Asael Pinedo Work Phone: [facility] Work Phone: 11-04-2021 15:03-0500 Heart rate 67 /min Dr. Asael Pinedo Work Phone: [facility] Work Phone: 11-04-2021 14:00-0500 Body temperature 97.5 [degF] Dr. Asael Pinedo Work Phone: [facility] Work Phone: 11-04-2021 14:00-0500 Diastolic blood pressure 99 mm[Hg] Dr. Asael Pinedo Work Phone: [facility] Work Phone: 11-04-2021 14:00-0500 Respiratory rate 16 /min Dr. Asael Pinedo Work Phone: [facility] Work Phone: 11-04-2021 14:00-0500 Systolic blood pressure 159 mm[Hg] Dr. Asael Pinedo Work Phone: [facility] Work Phone: NEGATED: Highlighted [id number] 14:23-0400 Body height 177.8 cm Jeanette Norris AT [facility] Work Phone: NEGATED: Highlighted [id number] 14:23-0400 Body height 178 cm Jeanette Norris AT [facility] Work Phone: NEGATED: Highlighted [id number] 14:23-0400 Body mass index (BMI) [Ratio] 25.49 kg/m2 Jeanette Norris AT [facility] Work Phone: NEGATED: Highlighted [id number] 14:23-0400 Body weight 80.29 kg Jeanette Norris AT [facility] Work Phone: NEGATED: Highlighted [id number] 14:23-0400 Body weight 80 kg Jeanette Norris AT [facility] Work Phone: Encounters Encounter Date Encounter Type Care Provider Facility Start: 02-28-2025 End: 02-28-[address] Asael Pinedo MD Work Phone: -Laboratory [facility] Start: 02-28-2025 End: 02-28-[address] Asael Pinedo MD -Laboratory [facility] Start: 02-28-2025 End: 02-28-2025 ambulatory Asael Pinedo Facility:[facility] Start: 12-22-2024 End: 12-22-[address] Asael Pinedo MD -[facility] [place] Work Phone: Start: 12-22-2024 End: 12-22-2024 ambulatory Asael Pinedo Facility:[facility] Start: 11-02-2024 End: 11-02-[address] Asael Pinedo MD Work Phone: [facility] Work Phone: Start: 11-02-2024 End: 11-02-[address] [facility] Start: 11-02-2024 End: 11-02-2024 ambulatory Asael Pinedo Facility:[facility] Start: 06-03-2024 End: 06-03-2024 ambulatory Asael Pinedo [facility] Start: 03-18-2024 End: 03-18-2024 ambulatory Asael Pinedo Facility:[facility] Start: 04-01-2023 End: 04-01-2023 ambulatory [facility] Work Phone: Start: 04-01-2023 End: 04-01-2023 Patient encounter procedure [facility] Start: 01-27-2023 End: 01-27-2023 ambulatory [facility] Work Phone: Start: 01-27-2023 End: 01-27-2023 Patient encounter procedure [facility] Start: 11-20-2022 End: 11-20-2022 ambulatory [facility] Work Phone: Start: 11-20-2022 End: 11-20-2022 Patient encounter procedure [facility] Start: 08-26-2022 End: 08-26-2022 ambulatory [facility] Work Phone: Start: 08-26-2022 End: 08-26-2022 Patient encounter procedure [facility] Start: 07-07-2022 End: 07-07-2022 ambulatory [facility] Work Phone: Start: 07-07-2022 End: 07-07-2022 Patient encounter procedure [facility], [facility] Start: 06-26-2022 End: 06-26-[address] Asael Pinedo Work Phone: [facility] Work Phone: Start: 06-26-2022 End: 06-26-[address] Asael Pinedo Work Phone: [facility] Start: 06-03-2022 End: 06-03-[address] Asael Pinedo Work Phone: [facility] Work Phone: Start: 06-03-2022 End: 06-03-[address] Asael Pinedo Work Phone: [facility] Start: 04-15-2022 End: 04-15-[address] Asael Pinedo Work Phone: [facility] Start: 03-20-2022 End: 03-20-[address] Asael Pinedo Work Phone: [facility] Start: 03-06-2022 End: 03-06-[address] Asael Pinedo Work Phone: [facility] Start: 03-06-2022 End: 03-06-[address] Asael Pinedo Work Phone: [facility] Start: 02-18-2022 End: 02-18-[address] Asael Pinedo Work Phone: [facility] Start: 02-07-2022 End: 02-07-[address] Asael Pinedo Work Phone: [facility] Start: 11-04-2021 Non-patient / Non-visit Dr. Asael Pinedo Work Phone: [facility] Start: 11-04-2021 End: 11-04-2021 Evaluation and management of inpatient Dr. Asael Pinedo [facility] Date Procedure Procedure Detail Performing Clinician Start: 12-22-2024 X-ray of cervical spine Dr. Asael Pinedo MD Work Phone: Start: 07-07-2022 Iodine 131 therapy Start: 12-10-2021 End: 12-11-2021 BP scrn no perf at interval Eduardo Hennessy DO Work Phone: Start: 12-10-2021 End: 12-11-2021 Calc BMI abv up cesia f/u Eduardo Hennessy DO Work Phone: Start: 12-10-2021 End: 12-11-2021 Current tobacco non-user cad cap copd pv dm Eduardo Hennessy DO Work Phone: Start: 12-10-2021 End: 12-11-2021 Docrev cur meds by bud Hennessy DO Work Phone: Start: 12-10-2021 End: 12-11-2021 No doc of pain Eduardo Hennessy DO Work Phone: Start: 12-10-2021 End: 12-11-2021 Patient encounter procedure [place] Hennessy DO Work Phone: Start: 11-04-2021 MRI of brain without contrast Dr. Asael Pinedo Work Phone: Start: 11-04-2021 Plain chest X-ray Dr. Sp Pinedo Work Phone: Start: 11-04-2021 CT of head without contrast Dr. Asael Pinedo Work Phone: Start: 11-04-2021 CT angiography of he ad and neck Dr. Asael Pinedo Work Phone: Start: 04-30-2018 H/O: surgery Status post na brent septoplasty Jeanette Norris AT NEGATED: Highlighted rowStart: 12-10-2021 End: 12-10-2021 Documentation of current medications Jeanette Norris AT Plan of Treatment Date Care Activity Detail Author Start: 04-08-2022 End: 04-08-2022 Patient encounter procedure Appointment [facility] Work Phone: Start: 12-10-2021 End: 12-10-2021 Radex spine cervical 4 or 5 views XR CERVICAL 4VWS FLEX/EXT [facility] Work Phone: Start: 11-04-2021 Patient discharge [facility] Work Phone: Start: 11-04-2021 Following clinical pathway protocol [facility] Work Phone: Start: 11-04-2021 Admission procedure [facility] Work Phone: Start: 11-04-2021 Cardiac monitoring [facility] Work Phone: Start: 11-04-2021 Catheterization of vein [facility] Work Phone: Start: 11-04-2021 Continuous pulse oximetry [facility] Work Phone: Start: 11-04-2021 Elevation of head of bed [facility] Work Phone: Start: 11-04-2021 Exercises [facility] Work Phone: Start: 11-04-2021 Implementation of planned interventions [facility] Work Phone: Start: 11-04-2021 Notification of physician [facility] Work Phone: Start: 11-04-2021 Oxygen therapy [facility] Work Phone: Start: 11-04-2021 Patient referral to dietitian [facility] Work Phone: Start: 11-04-2021 Referral to occupational therapist [facility] Work Phone: Start: 11-04-2021 Referral to service [facility] Work Phone: Start: 11-04-2021 Speech therapy assessment [facility] Work Phone: Start: 11-04-2021 Tobacco use cessation education [facility] Work Phone: Start: 11-04-2021 End: 11-04-2021 [facility] Work Phone: Start: 11-04-2021 Ambulation without limitation [facility] Work Phone: Start: 11-04-2021 Assessment of risk of venous thromboembolism [facility] Work Phone: Start: 11-04-2021 Insertion of catheter into peripheral vein [facility] Work Phone: Start: 11-04-2021 Measuring intake and output [facility] Work Phone: Start: 11-04-2021 Providing care according to standard [facility] Work Phone: Start: 11-04-2021 [facility] Work Phone: Patient referral [facility] Work Phone: Immunizations Immunization Date Immunization Notes Care Provider Fa cili 05-24-2021 Covid (Pfizer) Dr. Asael pan Work Phone: [facility] 05-03-2021 Covid (Pfizer) Dr. Asael pan Work Phone: [facility] Payers Date Payer Category Payer Self-pay [id number] 2012 Unknown [id number] Unknown [id number] Unknown [id number] Unknown [id number] Unknown [id number] Unknown [id number] Social History Date Type Detail Facility Start: 11-04-2021 End: 03-06-2022 Assertion Unknown if ever smoked [facility] Work Phone: Start: 11-04-2021 Non-smoker [facility] Start: 1970 Sex Assigned At Male [facility] Start: 05-26-2023 Tobacco smoking status NHIS Never smoked tobacco (finding) [facility] Start: 11-16-2024 Sex Male (finding) [facility] NEGATED: Highlighted rowStart: 12-10-2021 End: 12-10-2021 Employment detail Employment detail [facility] Work Phone: Functional Status Date Assessment Result Facility 11-04-2021 Functional status Activity Ability Indepe ndent [facility] Work Phone: Mental Status Date Assessment Result Facility 11-04-2021 Cognitive function Appropriate;Cooperativ e [facility] Work Phone: Evaluation note Note Date & Type Note Facility Evaluation note There may be informa tion available, but it has not been provided by the sender. [facility] Work Phone: Evaluation note Note Date & Type Note Facility Evaluation note Diagnosis Onset Date Sensory deficit, left acute High cholesterol chronic [facility] Work Phone: Evaluation note Note Date & Type Note Facility Evaluation note Diagnosis Onset Date Autoimmune thyroiditis acute [facility] Work Phone: Evaluation note Note Date & Type Note Facility Evaluation note No assessment information availa ble [facility] Work Phone: Instructions Note Date & Type Note Facility Instructions CompletedPatient advised to follow-up with Primary Care Physician for BMI management. [facility] Work Phone: Reason for referral (narrative) Note Date & Type Note Facility Reason for referral (narrative) No reason for referral information available [facility] Work Phone: Chief Complaint Chief Complaint Description Start Date neck post Anterior cervical discectomy and decompression C5-C6 with large subligamentous disc herniation retrieval. Artificial disc replacement C5-C6. on 04/15/2021 Preliminary chief co mplaint data, not yet signed by the author as of Advance Directives No Advanced Directives Records Found Advance Directive Response Recorded Date/ Time Living Will No November 04, 2021 2:31pm Power of Trim Stencil Maker No November 04 2 2:31pm Advance Directive Response Recorded Date/ Time Living Will No November 04, 2021 1:31pm Power of Trim Stencil Maker No November 04 2 1:31pm Family History No Family History Records Found Relationship Condition Age at Onset Recorded Date/T bianca Not Specified Disorder of thyroid Unknown Chief Complaint and Reason for Visit Chief Complaint TIA TIA (cardiology) Reason for Visit Sensory deficit, lef t High cholesterol Chief Complaint [employer]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 HYPERTHRYOID, NE EDS NPP THYROID Reason for Visit Autoimmune thyroidit is Chief Complaint THYROID THYROTOXICOSIS Summary Purpose Additional Source Comments Reason for Visit (unrecogniz ed section and content) Reason For Visit Description Postop - subsequent visit Preliminary reason f or visit data, not yet signed by the author as of neck post Anterior cervical discectomy and decompression C5-C6 with large subligamentous disc herniation retrieval. Artificial disc replacement C5-C6. on 04/15/2021 Goals (unrecognized section and content) Goals may be documented in a n alternate sectionGoals may be documented in an alternate sectionGoals may be documented in an alternate sectionGoals may be documented in an alternate sectionGoals may be documented in an alternate sectionGoals may be documented in an alternate sectionGoals may be documented in an alternate sectionGoals may be documented in an alternate sectionGoals may be documented in an alternate sectionGoals may be documented in an alternate sectionGoals may be documented in an alternate sectionGoals may be documented in an alternate sectionGoals may be documented in an alternate section Care Teams (unrecognized sec tion and content) Team Status: Active Member Role Status Dates Dr. Asael Pinedo MD Family Provider Active Dr. Asael Pinedo MD Primary Care Provider Active Team Status: Inactive Member Role Status Dates Dr. Asael Pinedo MD Primary Care Provider Active Dr. Perez Black MD Attending Provider Active Team Status: Inactive Member Role Status Dates Dr. Asael Pinedo MD Primary Care Provider Active BULMARO Pace Attending Provider Active Team Status: Inactive Member Role Status Dates Dr. Asael Pinedo MD Primary Care Provider Active Start: November 02, 2024 End: November 02, 2024 Dr. Asael Pinedo MD Attending Provider Active Start: November 02, 2024 End: November 02, 2024 Dr. Asael Pinedo MD Referring Provider Active Start: November 02, 2024 End: November 02, 2024 Team Status: Active Member Role/Relationship Status Dates Dr. Asael Pinedo MD Family Provider Active Dr. Asael Pinedo MD Primary Care Provider Active Team Status: Inactive Member Role/Relationship Status Dates Dr. Asael Pinedo MD Primary Care Provider Active Start: December 22, 2024 End: December 22, 2024 Dr. Asael Pinedo MD Attending Provider Active Start: December 22, 2024 End: December 22, 2024 Dr. Asael Pinedo MD Referring Provider Active Start: December 22, 2024 End: December 22, 2024 Team Status: Inactive Member Role/Relationship Status Dates Dr. Asael Pinedo MD Primary Care Provider Active Start: February 28, 2025 End: February 28, 2025 Dr. Asael Pinedo MD Attending Provider Active Start: February 28, 2025 End: February 28, 2025 Dr. Asael Pinedo MD Referring Provider Active Start: February 28, 2025 End: February 28, 2025 (unrecognized sect ion and content) No Status Records Found INFORMATION SOURCE (unrecogn ized section and content) DATE CREATED AUTHOR 03/12/2025 [facility] FOR RECORDS PERTAINING TO PATIENTS WHO ARE [...] BE BASED ON THE PRIMARY CLINICAL RECORDS. [facility]. provides no warranty or guarantee of the accuracy or completeness of information in this document.
[2025-08-28 12:35] LABS: AST(SGOT) 26 U/L (<=37); Alanine Aminotransfer ALT/SGPT 48 U/L (<=46); Albumin, Serum 4.5 g/dL (3.5-5.0); Alkaline Phosphatase 65 U/L (40-129); Anion Gap 10 (7-18); BUN 12 mg/dL (4-19); BUN/Creat Ratio 11.4 RATIO (10-20); Calcium,Total 9.3 mg/dL (7.6-11.0); Carbon Dioxide 25.1 mmol/L (20.0-29.0); Chloride 104 mmol/L (96-106); Cholesterol 168 mg/dL (<=200); Free T3 2.6 pg/mL (2.18-3.98); Globulin 3.0 g/dL (2.2-4.2); Glucose 102 mg/dL (70-99); Low Density Lipoprotein Calc. 110 mg/dL; Potassium 4.5 mmol/L (3.5-5.1); Triglycerides 87 mg/dL; Very Low Density Lipoprotein 17 mg/dL (5-40); cholesterol:hdl ratio screen 4.00
== END | disposition home or self-care (01) ==
LOC: MFPLAB 10:47
PROVIDERS: PCP Family Medicine; Visit Provider Family Medicine
DX: E05.90 Thyrotoxicosis, unspecified without thyrotoxic crisis or storm (principal); E78.5 Hyperlipidemia, unspecified
CPT/HCPCS: 36415; 80053; 80061; 84439; 84443; 84481